=== PATIENT | male | born 1930 | race Caucasian/White ===

== ENCOUNTER 2017-02-11 19:45 | Observation (INO) | payer MEDICARE, OTHER ==
[2017-02-11] MEDS ORDERED: Nitroglycerin 2% Ointment Foilpak UD TOP STA (20:07)
[2017-02-11] MEDS ORDERED: Nitroglycerin 2% Ointment Foilpak UD TOP ONE (20:14)
[2017-02-11 20:15] LABS: BASO # 0.1 K/uL (0.0-0.2); BASO % 1.2 % (0.0-2.0); EOS # 0.3 K/uL (0.0-0.7); EOS % 3.3 % (0.0-4.0); HEMATOCRIT 35.5 % (35.0-51.0); LYMPH # 2.4 K/uL (1.0-4.3); LYMPH % 25.7 % (20.0-40.0); MEAN CELL VOLUME 89.5 fL (80.0-94.0); MEAN CORPUSCULAR HEMOGLOBIN 30.1 pg (27.0-31.0); MEAN CORPUSCULAR HGB CONC 33.6 g/dL (33.0-37.0); MEAN PLATELET VOLUME 10.6 fL (7.2-11.7); MONO # 1.1 K/uL (0.0-0.8); MONO % 12.1 % (0.0-10.0); RED CELL DISTRIBUTION WIDTH 13.3 % (11.5-14.5); WHITE BLOOD COUNT 9.2 K/uL (4.8-10.8)
[2017-02-11 20:25] LABS: ALB/GLOB RATIO 1.1 (1.0-2.1); BILIRUBIN,TOTAL 0.6 mg/dL (0.2-1.3); TOTAL PROTEIN 6.6 g/dL (6.3-8.3)
[2017-02-11 20:26] LABS: CALCIUM 8.8 mg/dl (8.6-10.4)
--- NOTE | 2017-02-11 20:26 | C.PDOC ---
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 Pt notes the pain as severe and non- radiating that is associated with diaphoresis, SOB, and one episode of vomiting. Pt reports the pain began while he was sitting at [employer]. Pt denies fever, chills, palpitations, lightheadedness or syncope. Time Seen by Provider: 02/11/17 19:59 Chief Complaint (Nursing): Chest Pain History Per: Patient History/Exam Limitations: no limitations Onset/Duration Of Symptoms: Hrs Current Symptoms Are (Timing): Still Present Severity: Mild Recent travel outside of the [place]: No Past Medical History Reviewed: Historical Data, Nursing Documentation, Vital Signs Vital Signs: Last Vital Signs Temp 97.2 F L 02/11/17 19:51 Pulse 64 02/11/17 21:35 Resp 20 02/11/17 21:35 BP 153/71 H 02/11/17 21:35 Pulse Ox 99 02/11/17 21:35 - Medical History PMH: CAD, HTN Family History: States: Unknown Family Hx - Social History Hx Alcohol Use: No Hx Substance Use: No Review Of Systems Except As Marked, All Systems Reviewed And Found Negative. Constitutional: Positive for: Sweats. Negative for: Fever, Chills Cardiovascular: Positive for: Chest Pain (Substernal). Negative for: Palpitations, Light Headedness Respiratory: Positive for: Shortness of Breath Gastrointestinal: Positive for: Vomiting Physical Exam - Physical Exam Appears: Non-toxic, No Acute Distress Skin: Warm, Dry Head: Atraumatic, Normacephalic Oral Mucosa: Moist Chest: Symmetrical Cardiovascular: Rhythm Regular, No Murmur Respiratory: Normal Breath Sounds, No Rales, No Rhonchi, No Wheezing Gastrointestinal/Abdominal: Soft, No Tenderness Extremity: Normal ROM, No Pedal Edema, No Swelling Neurological/Psych: Oriented x3, Normal Speech, Normal Cognition Gait: Steady ED Course And Treatment - Laboratory Results Result Diagrams: 02/11/17 20:11 02/11/17 20:11 ECG: Interpreted By Me, Viewed By Me ECG Rhythm: Sinus Rhythm ECG Interpretation: No Acute Changes Interpretation Of ECG: Small inferior QS Rate From EC O2 Sat by Pulse Oximetry: 96 (RA) Pulse Ox Interpretation: Normal Medical Decision Making Medical Decision Making: Plans: -EKG -Blood labs -IV fluids -Nitroglycerin Pt remained stable in the ED Clasic cp hx, Ti neg, EKG old changes, Hx of stents Results and plan discussed with pt will need observation for further eval of the CP Dr Chaney consulted and will observe the pt Disposition - Disposition Disposition: HOSPITALIZED Disposition Time: 22:20 Condition: FAIR - Clinical Impression Clinical Impression: Chest pain, CAD (coronary artery disease) - Scribe Statement The provider has reviewed the documentation as recorded by the Scribe Rolando sparrow All medical record entries made by the Scribe were at my direction and personally dictated by me. I have reviewed the chart and agree that the record accurately reflects my personal performance of the history, physical exam, medical decision making, and the department course for this patient. I have also personally directed, reviewed, and agree with the discharge instructions and disposition.
[2017-02-11 20:37] LABS: TROPONIN I 0.017 ng/mL (0.00-0.120)
[2017-02-12] MEDS ORDERED: Enoxaparin 80 mg Syringe SC STA (01:26)
--- NOTE | 2017-02-12 01:35 | CP.PCM.HP ---
History of Present Illness - History of Present Illness History of Present Illness: CC: pain in my chest HPI: 86 M PMHx CAD with stents, HTN, DM presents with substernal chest pain that began at 7pm on the day of admission. Patient reports the pain started when he was at [employer] and kneeling down and he felt the pain on the left side of his chest. He reported the pain felt like a heavy sensation that was "too strong" and tight. The pain did not radiate up his jaw or down his left arm. Patient did have associated diaphoresis and two episodes of emesis that looked like gravy that were nonbloody and nonbilious. He reported he could feel his heart beating strongly against his chest. EMS was called and on his way to the ER patient was given 4 81mg ASA and 3 nitro sprays. Patient was given nitropaste in the ER and the pain subsided. Patient reported he felt like the pain was present for 2 hours. He states he had a cardiac cath 8 months ago which was "okay" and he had cardiac stents placed 1 year ago at [facility] [place]. Patient was also concerned that his DM was uncontrolled and associated his urinary frequency with it. Patient denied fever, chills, weakness, headache, dizziness, lightheadedness, change in vision/hearing, sore throat, dysphagia, palpitations , SOB, cough, hematemesis, bowel complaints, swelling in his legs b/l, back pain , rash, bruising, bleeding, recent travel, sick contacts, change in weight, change in appetite. He admitted to diaphoresis, chest pain, abdominal pain, nausea, vomiting, pain in his left thigh, urinary frequency. PMHx: CAD with stents, HTN, DM, PSHx: [facility] [place] 1 year ago where he had cardiac stents placed ALL: NKDA Medications: as per chart Social Hx: denies EtOH, tobacco, drugs. 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 Family Hx: father lived until he was 115 years old and brother lived until he was 99 years old. 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 Admits diaphoresis, chest pain, abdominal pain, nausea, vomiting, pain in his left thigh, urinary frequency Present on Admission - Present on Admission Any Indicators Present on Admission: No Review of Systems - Constitutional Constitutional: As Per HPI. absent: Chills, Fever - EENT Eyes: As Per HPI. absent: Blurred Vision Ears: As Per HPI. absent: Tinnitus, Dizziness Nose/Mouth/Throat: As Per HPI. absent: Dysphagia, Sore Throat - Cardiovascular Cardiovascular: As Per HPI, Chest Pain. absent: Dyspnea, Dyspnea on Exertion, Edema, Pedal Edema - Respiratory Respiratory: As Per HPI. absent: Cough, Dyspnea, Wheezing, Chest Congestion - Gastrointestinal Gastrointestinal: As Per HPI, Abdominal Pain, Nausea, Vomiting (x 2). absent: Constipation, Diarrhea - Genitourinary Genitourinary: As Per HPI. absent: Dysuria, Hematuria, Pyuria - Musculoskeletal Musculoskeletal: As Per HPI. absent: Back Pain, Numbness, Radiating Pain into Limb, Tingling - Integumentary Integumentary: As Per HPI. absent: Rash - Neurological Neurological: As Per HPI. absent: Dizziness, Headaches, Tingling, Weakness - Psychiatric Psychiatric: As Per HPI. absent: Anxiety, Depression - Endocrine Endocrine: As Per HPI, Polyuria. absent: Palpitations, Polydipsia, Polyphagia - Hematologic/Lymphatic Hematologic: As Per HPI. absent: Easy Bleeding, Easy Bruising, Lymphadenopathy Past Patient History - Past Social History Smoking Status: Never Smoked - CARDIAC Hx Hypertension: Yes - ENDOCRINE/METABOLIC Hx Diabetes Mellitus Type 2: Yes - PSYCHIATRIC Hx Substance Use: No Meds Allergies/Adverse Reactions: Allergies Allergy/AdvReac Type Severity Reaction Status Date / Time No Known Allergies Allergy Unverified 02/11/17 19:58 Physical Exam - Constitutional Appears: Non-toxic, No Acute Distress - Head Exam Head Exam: ATRAUMATIC, NORMAL INSPECTION, NORMOCEPHALIC - Eye Exam Eye Exam: EOMI, Normal appearance, PERRL. absent: Conjunctival injection, Scleral icterus Pupil Exam: NORMAL ACCOMODATION - ENT Exam ENT Exam: Mucous Membranes Moist - Neck Exam Neck exam: Positive for: Full Rom, Normal Inspection. Negative for: Lymphadenopathy, Tenderness - Respiratory Exam Respiratory Exam: Clear to Auscultation Bilateral, NORMAL BREATHING PATTERN. absent: Accessory Muscle Use, Rales, Rhonchi, Wheezes - Cardiovascular Exam Cardiovascular Exam: REGULAR RHYTHM, RRR, +S1, +S2. absent: Systolic Murmur - GI/Abdominal Exam GI & Abdominal Exam: Normal Bowel Sounds, Soft. absent: Firm, Guarding, Rigid, Tenderness - Extremities Exam Extremities exam: Positive for: normal capillary refill, normal inspection, pedal pulses present. Negative for: pedal edema - Back Exam Back exam: NORMAL INSPECTION. absent: rash noted, tenderness - Neurological Exam Neurological exam: Alert, CN II-XII Intact, Oriented x3 - Psychiatric Exam Psychiatric exam: Normal Affect, Normal Mood - Skin Skin Exam: Dry, Intact, Normal Color, Warm Results - Vital Signs Recent Vital Signs: Last Vital Signs Temp 98 F 02/11/17 23:55 Pulse 55 L 02/11/17 23:55 Resp 15 02/11/17 23:55 BP 135/57 L 02/11/17 23:55 Pulse Ox 99 02/11/17 23:55 - Labs Result Diagrams: 02/11/17 20:11 02/11/17 20:11 Labs: Laboratory Results - last 24 hr 02/12/17 00:43 Total Creatine Kinase 158 CK-MB (Mass) 2.75 Troponin I, Quant 0.3320 H* Assessment & Plan - Assessment and Plan (Free Text) Assessment: 86 M PMHx CAD with stents, HTN, DM presents with substernal chest pain that began at 7pm on the day of admission Plan: Chest pain r/o ACS -2nd troponin 0.332; EKG: sinus rhythm with sinus arrhythmia with 1st degree AV block; inferior infarct age undetermined -1st troponin 0.017; EKG: NSR @ 68bpm -Patient given Lovenox 80mg stat after 2nd troponin elevation -ASA 81mg po daily -Crestor 5mg po hs -f/u third ZEHRA and EKG -f/u echo -f/u CXR -2015 myocardial perfusion scan: abnl and consistent with a mild degree of non transmural scar with viability of the LV inferolateral wall. No ischemia is seen. Normal LV EF. No ischemia is anoted. normal LV EF of 82%. Both post stress and resting LV myocardial perfusion images demonstrated a similar moderated sized mild inferolateral wall defect. -Will speak to primary in the AM regarding cardiology consult Hx of DM2 -f/u HgbA1c -Accucheck -RISS Hx of HTN -will speak to primary in AM regarding BP meds -f/u lipid panel and thyroid studies PPX -SCDs -Protonix 40mg po daily -Heparin 5000u sc q12 -Heart healthy diet mod consistent carb Case discussed with Dr. Shiv Castaneda PGY1
--- NOTE | 2017-02-12 07:26 | CP.PCM.PN ---
Subjective - Date & Time of Evaluation Date of Evaluation: 02/12/17 Time of Evaluation: 07:25 - Subjective Subjective: PGY-1 progress note for hospitalist service Pt seen and examined at bedside. Overnight pt returned positive troponin values , and was was given Lovenox. Third ZEHRA this AM showed positive troponin but was downtrending from previous. EKG shows slight ST elevation in inferior leads. Pt was started on heparin drip as precaution. Pt denies any chest pain or discomfort, shortness of breath, abdominal pain, N/V/D/C. Call was placed to pts Geotechnical Engineer, Dr. Lady Riley. Dr. Riley believed that because pt was having no chest pain presently, and there was no matching CK rise with troponin, pt could be discharged and he would follow up at his office on Wednesday. Fourth ZEHRA largely down-trending, EKG NSR. Objective - Vital Signs/Intake and Output Vital Signs (last 24 hours): Temp Pulse Resp BP Pulse Ox 97.9 F 52 L 20 132/58 L 100 02/12/17 04:10 02/12/17 04:10 02/12/17 04:10 02/12/17 04:10 02/12/17 04:10 - Medications Medications: Current Medications Aspirin (Aspirin Chewable) 81 mg PO DAILY TIFFANY Heparin Sodium (Porcine) (Heparin) 5,000 units SC Q12 TIFFANY Insulin Aspart (Novolog) 0 unit SC ACHS TIFFANY PRN Reason: Protocol Pantoprazole Sodium (Protonix Ec Tab) 40 mg PO DAILY TIFFANY Rosuvastatin Calcium (Crestor) 5 mg PO HS TIFFANY - Additional Findings Additional findings: - Constitutional Appears: Non-toxic, No Acute Distress - Head Exam Head Exam: ATRAUMATIC, NORMAL INSPECTION, NORMOCEPHALIC - Eye Exam Eye Exam: EOMI, Normal appearance, PERRL. absent: Conjunctival injection, Scleral icterus Pupil Exam: NORMAL ACCOMODATION - ENT Exam ENT Exam: Mucous Membranes Moist - Neck Exam Neck exam: Positive for: Full Rom, Normal Inspection. Negative for: Lymphadenopathy, Tenderness - No JVD - Respiratory Exam Respiratory Exam: Clear to Auscultation Bilateral, NORMAL BREATHING PATTERN. absent: Accessory Muscle Use, Rales, Rhonchi, Wheezes - Cardiovascular Exam Cardiovascular Exam: REGULAR RHYTHM, RRR, +S1, +S2. absent: Systolic Murmur - No reproducible chest pain - GI/Abdominal Exam GI & Abdominal Exam: Normal Bowel Sounds, Soft. absent: Firm, Guarding, Rigid, Tenderness - Extremities Exam Extremities exam: Positive for: normal capillary refill, normal inspection, pedal pulses present. Negative for: pedal edema - Back Exam Back exam: NORMAL INSPECTION. absent: rash noted, tenderness - Neurological Exam Neurological exam: Alert, CN II-XII Intact, Oriented x3 - Psychiatric Exam Psychiatric exam: Normal Affect, Normal Mood - Skin Skin Exam: Dry, Intact, Normal Color, Warm Assessment and Plan - Assessment and Plan (Free Text) Assessment: 86 M PMHx CAD with stents, HTN, DM presents with substernal chest pain that began at 7pm on the day of admission Plan: Chest pain r/o ACS Troponin Trend 0.017, 0.332, 0.3050, 0.1840 EKG: sinus rhythm with sinus arrhythmia with 1st degree AV block; inferior infarct age undetermined; EKG: NSR @ 68bpm CXR (02/12/17): NAD 2015 myocardial perfusion scan: abnl and consistent with a mild degree of non transmural scar with viability of the LV inferolateral wall. No ischemia is seen. Normal LV EF. No ischemia is noted. normal LV EF of 82%. Both post stress and resting LV myocardial perfusion images demonstrated a similar moderated sized mild inferolateral wall defect. -f/u echo official report Patient given Lovenox 80mg stat after 2nd troponin elevation - Heparin Drip started, but stopped after down-trending ZEHRA ASA 81mg po daily HOLD BB as pt bradycardic, start Lisinopril 5mg Daily Crestor 5mg po hs Dr. Lady Riley, cardiology consult - f/u reccs Hx of DM2 -HgbA1c: 9.9 -Accucheck -RISS Hx of HTN -pt does not know home meds -Start Norvasc 5mg PO Daily -Lipid panel: WNL -Thyroid studies: WNL PPX -SCDs -Protonix 40mg po daily -Heparin 5000u sc q12 -Heart healthy diet mod consistent carb
[2017-02-12] MEDS: (Novolog) Insulin Aspart, Recombinant 100 u/ml 10 ml vial SC SCH ×4 (07:51→21:44)
[2017-02-12 10:03] LABS: T4 8.04 ug/dL (5.5-11.0)
[2017-02-12] MEDS: Pantoprazole 40 mg EC Tab PO SCH (10:16)
[2017-02-12 10:17] LABS: THYROID STIMULATING HORMONE 1.8 mIU/L (0.46-4.68)
--- NOTE | 2017-02-12 10:21 | RAD ---
PROCEDURE: CHEST RADIOGRAPH, 1 VIEW HISTORY: Chest pain COMPARISON: 08/03/2012 FINDINGS: LUNGS: The lungs are clear. PLEURA: No pneumothorax or pleural fluid seen. CARDIOVASCULAR: The heart is normal in size. There is asymmetric prominence of the right hilum, stable since the prior examination. OSSEOUS STRUCTURES: No significant abnormalities. VISUALIZED UPPER ABDOMEN: Normal. OTHER FINDINGS: None. IMPRESSION: No active pulmonary disease.
[2017-02-12] MEDS ORDERED: Heparin25000 units/250ml 1/2NS 25,000 UNITS/250 ML BAG IV PRN (12:45)
[2017-02-12 14:52] LABS: CHLORIDE 104 mmol/L (98-107); SODIUM 138 mmol/L (132-148)
[2017-02-12 14:53] LABS: POTASSIUM 4.5 mmol/L (3.6-5.2)
[2017-02-12 14:55] LABS: BLOOD UREA NITROGEN 16 mg/dL (9-20); CARBON DIOXIDE 26 mmol/L (22-30); GFR AFRICAN-AMERICAN > 60
[2017-02-12 14:56] LABS: GLUCOSE,RANDOM 200 mg/dL (75-110)
[2017-02-12 16:52] VITALS: RESP 20; O2SAT 98
[2017-02-12] MEDS ORDERED: Enoxaparin 80 mg Syringe SC SCH (20:00)
[2017-02-13] MEDS: (Novolog) Insulin Aspart, Recombinant 100 u/ml 10 ml vial SC SCH ×2 (07:41→12:33)
[2017-02-13 08:47] LABS: BASO # 0.1 K/uL (0.0-0.2); BASO % 1.1 % (0.0-2.0); EOS # 0.3 K/uL (0.0-0.7); EOS % 4.1 % (0.0-4.0); HEMATOCRIT 40.2 % (35.0-51.0); LYMPH # 1.3 K/uL (1.0-4.3); LYMPH % 18.5 % (20.0-40.0); MEAN CELL VOLUME 89.4 fL (80.0-94.0); MEAN CORPUSCULAR HEMOGLOBIN 30.2 pg (27.0-31.0); MEAN CORPUSCULAR HGB CONC 33.8 g/dL (33.0-37.0); MEAN PLATELET VOLUME 11.1 fL (7.2-11.7); MONO # 0.7 K/uL (0.0-0.8); MONO % 9.6 % (0.0-10.0); NRBC % 0.1 % (0.0-2.0); RED CELL DISTRIBUTION WIDTH 13.5 % (11.5-14.5); WHITE BLOOD COUNT 7.1 K/uL (4.8-10.8)
[2017-02-13 08:57] LABS: CHLORIDE 105 mmol/L (98-107); SODIUM 139 mmol/L (132-148)
[2017-02-13 08:58] LABS: POTASSIUM 4.5 mmol/L (3.6-5.2)
[2017-02-13 08:59] LABS: BILIRUBIN,TOTAL 0.8 mg/dL (0.2-1.3); GFR AFRICAN-AMERICAN > 60
[2017-02-13 09:00] LABS: ALB/GLOB RATIO 1.1 (1.0-2.1); ALKALINE PHOSPHATASE 159 U/L (38-126); ALT/SGPT 50 U/L (21-72); AST/SGOT 49 U/L (17-59); BLOOD UREA NITROGEN 17 mg/dL (9-20); CARBON DIOXIDE 23 mmol/L (22-30); GLUCOSE,RANDOM 291 mg/dL (75-110); PHOSPHOROUS 2.8 mg/dL (2.5-4.5); TOTAL PROTEIN 7.2 g/dL (6.3-8.3)
[2017-02-13 09:01] LABS: CALCIUM 9.1 mg/dl (8.6-10.4); MAGNESIUM 1.7 mg/dL (1.6-2.3)
[2017-02-13 09:05] VITALS: BP 131/73; PULSE 71; TEMP 98.4
[2017-02-13] MEDS: Pantoprazole 40 mg EC Tab PO SCH (09:54)
--- NOTE | 2017-02-13 14:16 | CP.PCM.DIS ---
Provider - Provider Date of Admission: 02/11/17 22:10 Attending physician: Herrera Chaney MD Primary care physician: Dr. Lady Riley Consults: Dr. Osvaldo Narayanan for cardiology Time Spent in preparation of Discharge (in minutes): 40 Hospital Course - Lab Results Lab Results: Most Recent Lab Values WBC 7.1 K/uL (4.8-10.8) 02/13/17 08:33 RBC 4.50 Mil/uL (4.40-5.90) 02/13/17 08:33 Hgb 13.6 g/dL (12.0-18.0) 02/13/17 08:33 Hct 40.2 % (35.0-51.0) 02/13/17 08:33 MCV 89.4 fL (80.0-94.0) 02/13/17 08:33 MCH 30.2 pg (27.0-31.0) 02/13/17 08:33 MCHC 33.8 g/dL (33.0-37.0) 02/13/17 08:33 RDW 13.5 % (11.5-14.5) 02/13/17 08:33 Plt Count 182 K/uL (130-400) 02/13/17 08:33 MPV 11.1 fL (7.2-11.7) 02/13/17 08:33 Neut % (Auto) 66.7 % (50.0-75.0) 02/13/17 08:33 Lymph % (Auto) 18.5 % (20.0-40.0) L 02/13/17 08:33 [place] % (Auto) 9.6 % (0.0-10.0) 02/13/17 08:33 Eos % (Auto) 4.1 % (0.0-4.0) H 02/13/17 08:33 Baso % (Auto) 1.1 % (0.0-2.0) 02/13/17 08:33 Neut # 4.8 K/uL (1.8-7.0) 02/13/17 08:33 Lymph # 1.3 K/uL (1.0-4.3) 02/13/17 08:33 [place] # 0.7 K/uL (0.0-0.8) 02/13/17 08:33 Eos # 0.3 K/uL (0.0-0.7) 02/13/17 08:33 Baso # 0.1 K/uL (0.0-0.2) 02/13/17 08:33 APTT 40 SECONDS (21-34) H D 02/13/17 08:33 Sodium 139 mmol/L (132-148) 02/13/17 08:33 Potassium 4.5 mmol/L (3.6-5.2) 02/13/17 08:33 Chloride 105 mmol/L (98-107) 02/13/17 08:33 Carbon Dioxide 23 mmol/L (22-30) 02/13/17 08:33 Anion Gap 15 (10-20) 02/13/17 08:33 BUN 17 mg/dL (9-20) 02/13/17 08:33 Creatinine 1.3 MG/DL (0.8-1.5) 02/13/17 08:33 Est GFR ( Amer) > 60 02/13/17 08:33 Est GFR (Non-Af Amer) 52 02/13/17 08:33 POC Glucose (mg/dL) 238 mg/dL (65-110) H 02/13/17 12:14 Random Glucose 291 mg/dL (75-110) H 02/13/17 08:33 Hemoglobin A1c 9.9 % (4.2-6.5) H 02/12/17 08:27 Calcium 9.1 mg/dl (8.6-10.4) 02/13/17 08:33 Phosphorus 2.8 mg/dL (2.5-4.5) 02/13/17 08:33 Magnesium 1.7 mg/dL (1.6-2.3) 02/13/17 08:33 Total Bilirubin 0.8 mg/dL (0.2-1.3) 02/13/17 08:33 AST 49 U/L (17-59) 02/13/17 08:33 ALT 50 U/L (21-72) 02/13/17 08:33 Alkaline Phosphatase 159 U/L (38-126) H 02/13/17 08:33 Total Creatine Kinase 143 U/L (55-170) 02/12/17 14:13 CK-MB (Mass) 2.93 ng/mL (0.0-3.38) 02/12/17 14:13 Troponin I 0.0170 ng/mL (0.00-0.120) 02/11/17 20:11 Troponin I, Quant 0.1840 ng/mL (0.00-0.120) H* 02/12/17 14:13 Total Protein 7.2 g/dL (6.3-8.3) 02/13/17 08:33 Albumin 3.7 g/dL (3.5-5.0) 02/13/17 08:33 Globulin 3.5 gm/dL (2.2-3.9) 02/13/17 08:33 Albumin/Globulin Ratio 1.1 (1.0-2.1) 02/13/17 08:33 Triglycerides 86 mg/dL (0-149) 02/12/17 08:27 Cholesterol 163 mg/dL (0-199) 02/12/17 08:27 LDL Cholesterol Direct 96 mg/dL (0-129) 02/12/17 08:27 HDL Cholesterol 46 mg/dL (30-70) 02/12/17 08:27 Thyroxine (T4) 8.04 ug/dL (5.5-11.0) 02/12/17 08:27 TSH 3rd Generation 1.80 mIU/L (0.46-4.68) 02/12/17 08:27 - Hospital Course Hospital Course: On admission: 86 M PMHx CAD with stents, HTN, DM presents with substernal chest pain that began at 7pm on the day of admission. Patient reports the pain started when he was at [employer] and kneeling down and he felt the pain on the left side of his chest. He reported the pain felt like a heavy sensation that was "too strong" and tight. The pain did not radiate up his jaw or down his left arm. Patient did have associated diaphoresis and two episodes of emesis that looked like gravy that were nonbloody and nonbilious. He reported he could feel his heart beating strongly against his chest. EMS was called and on his way to the ER patient was given 4 81mg ASA and 3 nitro sprays. Patient was given nitropaste in the ER and the pain subsided. Patient reported he felt like the pain was present for 2 hours. He states he had a cardiac cath 8 months ago which was "okay" and he had cardiac st[place] [facility] [place] Patient was also concerned that his DM was uncontrolled and associated his urinary frequency with it. Patient denied fever, chills, weakness, headache, dizziness, lightheadedness, change in vision/hearing, sore throat, dysphagia, palpitations , SOB, cough, hematemesis, bowel complaints, swelling in his legs b/l, back pain , rash, bruising, bleeding, recent travel, sick contacts, change in weight, change in appetite. He admitted to diaphoresis, chest pain, abdominal pain, nausea, vomiting, pain in his left thigh, urinary frequency. Hospital course: Patient was worked up for chest pain. Patient did not have any EKG changes. Patient had elevated troponins as high as 0.3320 which down trended to 0.1840. Patient was placed on therapeutic Lovenox. PTT increased to 112 so she was taken off and PTT came down to 40. Medical team spoke with patient's primary doctor and underground production foreperson, Dr. Lady Riley, who recommended outpatient follow up. Patient needs further outpatient tests and management. Patient seen and examined at bedside this AM. He was alert and AAOx3, moving all four limbs, cranial nerves intact. Patient denies chest pain and has no other complaints. Patient wants to go home. On discharge: Patient to be discharged home per Dr. Nicolette Ying. Patient should make an appointment and follow up with Dr. Lady Riley within one week. Patient should take an aspirin 81mg by mouth daily. Patient should stop home metoprolol pill. Patient should also take newly prescribed medications as directed below. Patient should return to ED immediately if symptoms return or worsen. Newly prescribed medications: Coreg 3.125mg by mouth twice a day #60 Crestor 5mg by mouth nightly #30 Discharge Exam - Head Exam Head Exam: ATRAUMATIC, NORMAL INSPECTION, NORMOCEPHALIC - Eye Exam Eye Exam: EOMI - ENT Exam ENT Exam: Mucous Membranes Moist - Respiratory Exam Respiratory Exam: Clear to PA & Lateral, NORMAL BREATHING PATTERN. absent: Rhonchi, Wheezes, Respiratory Distress - Cardiovascular Exam Cardiovascular Exam: REGULAR RHYTHM, +S1, +S2. absent: Gallop, Rubs, Systolic Murmur - GI/Abdominal Exam GI & Abdominal Exam: Normal Bowel Sounds, Soft. absent: Distended, Tenderness - Extremities Exam Extremities exam: full ROM, normal capillary refill, pedal pulses present - Neurological Exam Neurological exam: Alert, CN II-XII Intact, Oriented x3 - Psychiatric Exam Psychiatric exam: Normal Affect, Normal Mood - Skin Skin Exam: Normal Color, Warm Discharge Plan - Discharge Medications Prescriptions: Carvedilol [Coreg] 3.125 mg PO BID #60 tab Rosuvastatin Calcium [Crestor] 5 mg PO HS #30 tab - Follow Up Plan Condition: FAIR Disposition: HOME/ ROUTINE Instructions: Aspirin (By mouth), Carvedilol (By mouth), Rosuvastatin (By mouth ), Myocardial Infarction (DC), Coronary Artery Disease (GEN), Chest Pain (DC), Heart Healthy Diet (DC), Meal Planning with Diabetes Exchanges (DC) Additional Instructions: Patient to be discharged home per Dr. Nicolette Yign. Patient should make an appointment and follow up with Dr. Lady Riley within one week. Patient should take an aspirin 81mg by mouth daily. Patient should stop home metoprolol pill. Patient should also take newly prescribed medications as directed below. Patient should return to ED immediately if symptoms return or worsen. Newly prescribed medications: Coreg 3.125mg by mouth twice a day #60 Crestor 5mg by mouth nightly #30 Referrals: Lady Riley MD [Staff Provider] -
--- NOTE | 2017-02-13 16:57 | CARD ---
APPROVED REPORT EXAM: Two-dimensional and M-mode echocardiogram with Doppler and color Doppler. INDICATION CAD Chest Pain Stent RISK FACTORS Hypertension Diabetes M-Mode DIMENSIONS RVDd1.09 (2.1-3.2cm)Left Atrium (MM)4.39 (2.5-4.0cm) IVSd0.79 (0.7-1.1cm)Aortic Root2.62 (2.2-3.7cm) LVDd6.10 (4.0-5.6cm)Aortic Cusp Exc.1.44 (1.5-2.0cm) PWd0.85 (0.7-1.1cm)FS (%) 28 % LVDs4.37 (2.0-3.8cm)LVEF (%)54 (>50%) Aortic Valve AI P 1/2 [id number] Mitral Valve MV E Kztueprc308.3cm/sMV A Ievqcwtr984.3cm/sE/A ratio0.9 TDI E/Lateral E'0.0E/Medial E'0.0 Tricuspid Valve TR Peak Ijrjzsat843to/sTR Peak Gr.[id number] LEFT VENTRICLE The Left Ventricle is mildly dilated. There is normal left ventricular wall thickness. Left ventricle systolic function is normal. The Ejection Fraction is 50-55%. There is normal LV segmental wall motion. Tissue Doppler imaging reveals abnormal left ventricular diastolic dysfunction. RIGHT VENTRICLE The right ventricle is normal size. There is normal right ventricular wall thickness. The right ventricular systolic function is normal. ATRIA The left atrium is mildly dilated. The right atrium size is normal. The interatrial septum is intact with no evidence for an atrial septal defect. AORTIC VALVE The aortic valve is normal in structure. There is mild aortic regurgitation. There is no aortic valvular stenosis. There is no aortic valvular vegetation. MITRAL VALVE The mitral valve is normal in structure. There is no evidence of mitral valve prolapse. There is no mitral valve stenosis. Mitral regurgitation is mild. TRICUSPID VALVE The tricuspid valve is normal in structure. There is mild tricuspid regurgitation. Right ventricular systolic pressure is estimated at 40-50 mmHg. There is mild-moderate pulmonary hypertension. PULMONIC VALVE The pulmonic valve is not well visualized. There is no pulmonic valvular regurgitation. GREAT VESSELS The aortic root is normal in size. PERICARDIAL EFFUSION There is no significant pericardial effusion. <Conclusion> Left ventricle systolic function is normal. The Ejection Fraction is 50-55%. Diastolic dysfunction. There is mild aortic regurgitation. Mitral regurgitation is mild. There is mild tricuspid regurgitation. There is mild-moderate pulmonary hypertension. There is no pulmonic valvular regurgitation.
--- NOTE | 2017-02-14 08:36 | CARD ---
APPROVED REPORT EKG Measurement Heart [id number] <Conclusion> Sinus rhythm with sinus arrhythmia with 1st degree AV block Inferior infarct, age undetermined Abnormal ECG
--- NOTE | 2017-02-14 08:38 | CARD ---
APPROVED REPORT EKG Measurement Heart [id number] <Conclusion> Normal sinus rhythm Cannot rule out Anterior infarct, age undetermined Abnormal ECG
== END 2017-02-13 14:44 | disposition home or self-care (01) ==
LOC: C.ER 19:45 → C.9E 22:10 → C.6T 02-12 00:08
PROVIDERS: ADMIT Internal Medicine; ATTEND Internal Medicine
DX: R07.9 Chest pain, unspecified (principal); I25.10 Atherosclerotic heart disease of native coronary artery without angina pectoris; I10 Essential (primary) hypertension; E11.9 Type 2 diabetes mellitus without complications
CPT/HCPCS: 36415; 71010; 80048; 80053; 80061; 82948; 83036; 83735; 84100; 84436; 84443; 84484; 85025; 85730; 93005; 93306; 97162; 99285; G0378; G8978; G8979; G8980; J1644; J1650

== ENCOUNTER 2018-12-26 08:54 | Inpatient (IN) | payer MEDICARE, OTHER ==
--- NOTE | 2018-12-26 09:15 | C.PDOC ---
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 Patient denies recent illness, fever, chills, headache, dizziness, lightheadedness, change in vision/hearing, sore throat, dysphagia, palpitations, SOB, cough, hematemesis, diarrhea, urinary frequency. Appears AAO#3, not in any apparent distress. PMHx: CAD with stents, HTN, DM, PSH[place]: [facility] [place] [facility] [place] had cardiac stents placed ALL: NKDA Medications: as per chart Social Hx: denies EtOH, tobacco, drugs. 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 PMD: Dr Osvaldo Oh who is also his it admin Time Seen by Provider: 12/26/18 09:10 History Per: Patient Past Medical History Reviewed: Historical Data, Nursing Documentation, Vital Signs - Medical History PMH: CAD, CHF, Diabetes, HTN Denies: Chronic Kidney Disease Family History: States: Unknown Family Hx - Social History Hx Alcohol Use: No Hx Substance Use: No - Immunization History Hx Tetanus Toxoid Vaccination: No Hx Influenza Vaccination: No Hx Pneumococcal Vaccination: No Review Of Systems Except As Marked, All Systems Reviewed And Found Negative. Constitutional: Negative for: Fever, Chills ENT: Negative for: Throat Pain Cardiovascular: Negative for: Chest Pain, Palpitations, Orthopnea, Light Headedness Respiratory: Negative for: Cough, Shortness of Breath, Wheezing Gastrointestinal: Positive for: Nausea, Vomiting, Abdominal Pain. Negative for: Diarrhea, Melena, Hematochezia, Hematemesis Genitourinary: Negative for: Dysuria Neurological: Negative for: Altered Mental Status, Headache, Dizziness Physical Exam - Physical Exam Appears: Well, No Acute Distress Skin: Normal Color, Warm, Dry, No Rash Eye(s): bilateral: PERRL Oral Mucosa: Moist Neck: Trachea Midline, Supple Cardiovascular: Rhythm Regular, No Murmur, No JVD Respiratory: No Decreased Breath Sounds, No Accessory Muscle Use, No Stridor, No Wheezing Gastrointestinal/Abdominal: Soft, Tenderness (mild epigastric), No Distention, No Guarding, No Rebound Back: No CVA Tenderness Extremity: Normal ROM, No Pedal Edema, No Deformity, No Swelling Neurological/Psych: Oriented x3, Normal Speech ED Course And Treatment - Laboratory Results Result Diagrams: 12/26/18 09:41 12/26/18 09:41 Lab Interpretation: Abnormal ECG: Interpreted By Me, Viewed By Me (and ED attending) Interpretation Of ECG: SR@86/min, NAD, Q wave in III, no acute ST-T changes O2 Sat by Pulse Oximetry: 99 Pulse Ox Interpretation: Normal - Radiology CXR: Interpreted by Me, Read By Radiologist CXR Interpretation: Yes: No Acute Disease - CT Scan/US CT A/P Other Rad Studies (CT/US): Radiology Report Reviewed CT/US Interpretation: Structural Steel Detailer : Huma Bright MD. Approver2 : Report Date : 12/26/2018 12:59:37. My Comment : . Date of service: 12/26/2018. PROCEDURE: CT Abdomen and Pelvis with contrast. HISTORY: LLQ pain. COMPARISON: None available. TECHNIQUE: Contrast dose: 100 mL Visipaque 320 IV. Radiation dose: Total exam DLP = 877.56 mGy-cm. This CT exam was performed using one or more of the following dose reduction techniques: Automated exposure control, adjustment of the mA and/or kV according to patient size, and/or use of iterative reconstruction technique. FINDINGS: LOWER THORAX: No visible consolidation, pleural effusion, or pneumothorax. Small hiatal hernia/distal esophageal wall thickening. LIVER: Nodular hepatic contour may be seen in the setting of cirrhosis. GALLBLADDER AND BILE DUCTS: Unremarkable. PANCREAS: Unremarkable. SPLEEN: Tiny probable splenules. The spleen appears otherwise unremarkable. ADRENALS: Unremarkable. KIDNEYS AND URETERS: Kidneys appear diminutive with lobulated renal contours. The kidneys enhance symmetrically. No hydronephrosis or obstructing calculus identified. Too small to characterize left renal hypodensities, statistically likely cysts. VASCULATURE: No aortic aneurysm. Atherosclerotic calcifications/mural plaque. BOWEL: Stomach is nondistended. Lack of oral contrast limits evaluation for bowel pathology. Bowel loops appear within normal limits of caliber without evidence of obstruction. Extensive colonic wall thickening most severely involving the left colon and rectosigmoid colon; correlate clinically for colitis. APPENDIX: The appendix appears within normal limits of caliber. No secondary signs of acute appendicitis. PERITONEUM: No significant free fluid. No definite free air. LYMPH NODES: No bulky adenopathy identified. BLADDER: Unremarkable. REPRODUCTIVE: The prostate gland measures approximately 3.8 x 4.5 cm and contains coarse calcifications. BONES: Osseous demineralization. Degenerative changes. OTHER FINDINGS: Fat containing right inguinal hernia. IMPRESSION: Extensive colonic wall thickening most severely involving the left colon and rectosigmoid colon; correlate clinically for colitis. Nodular hepatic contour may be seen in the setting of cirrhosis. Borderline enlargement of the prostate gland with coarse calcifications; correlate with PSA. Additional findings as above. Progress Note: Pt was OBS in ED for 3 hrs and remained stable. On re-eval, afebrile, hemodynamicaly stable. ABd: benign, (-) guarding, (-) rebound. back: (-) CVA tenderness. Blood work reviewm acute luekocytosis with bandemia, left shift. chemistry- no acute abnoramlities. EKG, CXR, troponin - negative. CT A/P review (+) acute colitis, cirrhosis. case discussed with Hospitalist ( cover for Zay Dominguez) and admission accapted, request start Cipro/Flagyl IV now. results review and discussed with pt, agrees with plan. Disposition - Disposition Disposition: HOSPITALIZED Disposition Time: 11:30 Condition: STABLE - Clinical Impression Clinical Impression: Colitis, Leukocytosis, Bandemia
[2018-12-26] MEDS ORDERED: Sodium Chloride 0.9% 1,000 ML IV ONE ×2 (09:30→09:34)
[2018-12-26 09:49] LABS: BASO % 0.2 % (0.0-2.0); HEMOGLOBIN 14.4 g/dL (12.0-18.0); LYMPH # 0.5 K/uL (1.0-4.3); LYMPH % 2.6 % (20.0-40.0); MEAN CORPUSCULAR HEMOGLOBIN 31.5 pg (27.0-31.0); MEAN CORPUSCULAR HGB CONC 34.3 g/dL (33.0-37.0); MEAN PLATELET VOLUME 9.8 fL (7.2-11.7); MONO # 1.7 K/uL (0.0-0.8); MONO % 9.1 % (0.0-10.0); NEUT # 16.3 K/uL (1.8-7.0); NEUT % 88.1 % (50.0-75.0); PLATELET COUNT 233 K/uL (130-400); RBC 4.56 Mil/uL (4.40-5.90); RED CELL DISTRIBUTION WIDTH 12.8 % (11.5-14.5)
[2018-12-26 09:50] LABS: MEAN CELL VOLUME 91.9 fL (80.0-94.0); WHITE BLOOD COUNT 18.5 K/uL (4.8-10.8)
[2018-12-26 09:57] LABS: INR 1.1; PROTHROMBIN TIME 12.5 SECONDS (9.7-12.2)
[2018-12-26 09:57] LABS: VENOUS BLOOD GAS BASE EXCESS 0.7 mmol/L (0.0-2.0); VENOUS BLOOD GAS PCO2 54 mmHg (40-60); VENOUS BLOOD GAS PO2 20 mm/Hg (30-55); VENOUS BLOOD PH 7.32 (7.32-7.43)
[2018-12-26 10:08] LABS: ALB/GLOB RATIO 1.1 (1.0-2.1); ALBUMIN 4.5 g/dL (3.5-5.0); AMYLASE 131 U/L (30-110); BLOOD UREA NITROGEN 37 mg/dL (9-20); CALCIUM 10.1 mg/dl (8.6-10.4); GFR NON-AFRICAN AMERICAN 48; LIPASE 97 U/L (23-300)
[2018-12-26 10:11] LABS: ALT/SGPT 36 U/L (21-72); AST/SGOT 57 U/L (17-59)
[2018-12-26 10:19] LABS: B-TYPE NATRIURETIC PEPTIDE 246 pg/mL (0-900)
--- NOTE | 2018-12-26 10:24 | RAD ---
Date of service: 12/26/2018 PROCEDURE: CHEST RADIOGRAPH, 1 VIEW HISTORY: chest pain COMPARISON: 02/11/2017 FINDINGS: LUNGS: The lungs are well inflated and clear. PLEURA: No pneumothorax or pleural effusion. CARDIOVASCULAR: The heart is normal in size. There are aortic atherosclerotic calcifications present. OSSEOUS STRUCTURES: Within normal limits for the patient's age. VISUALIZED UPPER ABDOMEN: Normal. OTHER FINDINGS: None. IMPRESSION: No active pulmonary disease.
[2018-12-26 10:28] LABS: SQUAMOUS EPITHIAL < 1 /hpf (0-5); URINE BILIRUBIN NEGATIVE (NEGATIVE); URINE BLOOD 1+ (NEGATIVE); URINE CLARITY Hazy (Clear); URINE COLOR Yellow (YELLOW); URINE GLUCOSE (UA) 2+ mg/dL (Normal); URINE LEUKOCYTE ESTERASE NEG Leu/uL (Negative); URINE PROTEIN 2+ mg/dL (NEGATIVE); URINE UROBILINOGEN NORMAL mg/dL (0.2-1.0)
[2018-12-26 10:46] LABS: BANDS 3 % (0-2); LYMPHOCYTE 3 % (20-40); MONOCYTE 9 % (0-10); NEUTROPHIL 85 % (50-75); PLATELET ESTIMATE NORMAL (NORMAL); TOTAL CELLS COUNTED 100
[2018-12-26] MEDS ORDERED: Iodixanol 320 MG/ML 100 ML BOTTLE IV ONE (12:06)
--- NOTE | 2018-12-26 13:03 | CT ---
Date of service: 12/26/2018 PROCEDURE: CT Abdomen and Pelvis with contrast HISTORY: LLQ pain COMPARISON: None available. TECHNIQUE: Contrast dose: 100 mL Visipaque 320 IV Radiation dose: Total exam DLP = 877.56 mGy-cm. This CT exam was performed using one or more of the following dose reduction techniques: Automated exposure control, adjustment of the mA and/or kV according to patient size, and/or use of iterative reconstruction technique. FINDINGS: LOWER THORAX: No visible consolidation, pleural effusion, or pneumothorax. Small hiatal hernia/distal esophageal wall thickening. LIVER: Nodular hepatic contour may be seen in the setting of cirrhosis. GALLBLADDER AND BILE DUCTS: Unremarkable. PANCREAS: Unremarkable. SPLEEN: Tiny probable splenules. The spleen appears otherwise unremarkable. ADRENALS: Unremarkable. KIDNEYS AND URETERS: Kidneys appear diminutive with lobulated renal contours. The kidneys enhance symmetrically. No hydronephrosis or obstructing calculus identified. Too small to characterize left renal hypodensities, statistically likely cysts. VASCULATURE: No aortic aneurysm. Atherosclerotic calcifications/mural plaque. BOWEL: Stomach is nondistended. Lack of oral contrast limits evaluation for bowel pathology. Bowel loops appear within normal limits of caliber without evidence of obstruction. Extensive colonic wall thickening most severely involving the left colon and rectosigmoid colon; correlate clinically for colitis. APPENDIX: The appendix appears within normal limits of caliber. No secondary signs of acute appendicitis. PERITONEUM: No significant free fluid. No definite free air. LYMPH NODES: No bulky adenopathy identified. BLADDER: Unremarkable. REPRODUCTIVE: The prostate gland measures approximately 3.8 x 4.5 cm and contains coarse calcifications. BONES: Osseous demineralization. Degenerative changes. OTHER FINDINGS: Fat containing right inguinal hernia. IMPRESSION: Extensive colonic wall thickening most severely involving the left colon and rectosigmoid colon; correlate clinically for colitis. Nodular hepatic contour may be seen in the setting of cirrhosis. Borderline enlargement of the prostate gland with coarse calcifications; correlate with PSA. Additional findings as above.
[2018-12-26] MEDS ORDERED: Ciprofloxacin 400mg/200ml D5W 400 MG/200 ML BAG IV STA (13:25)
[2018-12-26] MEDS ORDERED: metroNIDAZOLE IV 500 mg/100 ml 500 MG/100 ML BAG IV SCH (13:30)
[2018-12-26] MEDS ORDERED: Ciprofloxacin 400mg/200ml D5W 400 MG/200 ML BAG IVPB ONE (13:53)
[2018-12-26] MEDS ORDERED: metroNIDAZOLE IV 500 mg/100 ml 500 MG/100 ML BAG ONE (13:54)
--- NOTE | 2018-12-26 13:57 | CP.PCM.HP ---
<Yaya Fajardo - Last Filed: 12/26/18 16:08> History of Present Illness - History of Present Illness History of Present Illness: H&P for hospitalist Dr. Justice. CC: Abdominal pain HPI: 88M w/ PMhx of HTN, DM, CAD w/ stents presents to ER for severe abdominal pain. Pt reports abdominal pain woke him up at 2AM and had nausea, vomitting, and diarrhea associated with pain. Pt reports about 6-8 episodes of non bloody, non billious episodes of vomitting along with 6 episodes of diarrhea. Pain is reported in the LLQ & RLQ area, intermittent & crampy in nature that is much improved at time of examination. Pt reports also subjective fevers. Patient lives at home and denies hx of sick contacts and recevent travel history. ROS: Denies headaches, vision changes, chest pain, SOB, cough, difficulty urinating/pain, throat, ear pain. PMD: Osvaldo Griffiths PMHx: HTN, DM, CAD w/ stents Meds: Pt unsure of meds, [facility] Allergies: Denies PSHx: Cardiac stents SHx: Denies tobacco, ETOH, illicit drug use, lives alone FHx; Father at age 89 Present on Admission - Present on Admission Any Indicators Present on Admission: No History of DVT/PE: No History of Uncontrolled Diabetes: No Urinary Catheter: No Decubitus Ulcer Present: No Review of Systems - Constitutional Constitutional: Fever. absent: Chills - EENT Eyes: absent: Blurred Vision, Change in Vision Ears: absent: Ear Discharge Nose/Mouth/Throat: absent: Nasal Congestion, Nose Pain - Cardiovascular Cardiovascular: absent: Chest Pain, Chest Pain at Rest, Dyspnea - Respiratory Respiratory: absent: Cough, Dyspnea, Dyspnea on Exertion - Gastrointestinal Gastrointestinal: Abdominal Pain, Diarrhea, Nausea, Vomiting. absent: Bloating, Constipation, Dysphagia, Excessive Flatus, Hematochezia - Genitourinary Genitourinary: absent: Change in Urinary Stream, Difficulty Urinating - Musculoskeletal Musculoskeletal: absent: Arthralgias - Neurological Neurological: absent: Dizziness, Lack of Coordination - Psychiatric Psychiatric: absent: Behavioral Changes, Confusion - Endocrine Endocrine: absent: Change in Body Appearance, Deepening of Voice - Hematologic/Lymphatic Hematologic: absent: Easy Bleeding, Easy Bruising Past Patient History - Past Medical History & Family History Past Medical History?: Yes - Past Social History Smoking Status: Never Smoked - CARDIAC Hx Congestive Heart Failure: Yes Hx Hypertension: Yes - PULMONARY Hx Respiratory Disorders: No - NEUROLOGICAL Hx Neurological Disorder: No - HEENT Hx HEENT Problems: No - RENAL Hx Chronic Kidney Disease: No - ENDOCRINE/METABOLIC Hx Endocrine Disorders: Yes Hx Diabetes Mellitus Type 2: Yes - HEMATOLOGICAL/ONCOLOGICAL Hx Blood Disorders: No - INTEGUMENTARY Hx Dermatological Problems: No - MUSCULOSKELETAL/RHEUMATOLOGICAL Hx Musculoskeletal Disorders: No Hx Falls: No - GASTROINTESTINAL Hx Gastrointestinal Disorders: No - GENITOURINARY/GYNECOLOGICAL Hx Genitourinary Disorders: No - PSYCHIATRIC Hx Substance Use: No - SURGICAL HISTORY Hx Surgeries: Yes Hx Cardiac Catheterization: Yes Other/Comment: Coronary Stents - ANESTHESIA Hx Anesthesia: Yes Hx Anesthesia Reactions: No Hx Malignant Hyperthermia: No Meds Allergies/Adverse Reactions: Allergies Allergy/AdvReac Type Severity Reaction Status Date / Time No Known Allergies Allergy Verified 12/26/18 09:21 Physical Exam - Constitutional Appears: Non-toxic, No Acute Distress - Head Exam Head Exam: NORMAL INSPECTION - Eye Exam Eye Exam: EOMI, Normal appearance - ENT Exam ENT Exam: Mucous Membranes Dry. absent: Mucous Membranes Moist - Respiratory Exam Respiratory Exam: Decreased Breath Sounds, Rales, NORMAL BREATHING PATTERN Additional comments: mild rales RLL - Cardiovascular Exam Cardiovascular Exam: +S1, +S2. absent: Systolic Murmur - GI/Abdominal Exam GI & Abdominal Exam: Normal Bowel Sounds, Soft. absent: Distended, Firm, Guarding Additional comments: tenderness on LLQ, RLQ no erythema, normoactive bowel signs - Extremities Exam Extremities exam: Positive for: full ROM, normal inspection. Negative for: calf tenderness, pedal edema - Back Exam Back exam: absent: CVA tenderness (L), CVA tenderness (R) - Neurological Exam Neurological exam: Alert, CN II-XII Intact, Oriented x3 - Psychiatric Exam Psychiatric exam: Normal Affect, Normal Mood - Skin Skin Exam: Dry, Intact, Normal Color, Warm Results - Vital Signs Recent Vital Signs: Last Vital Signs Temp 98.2 F 12/26/18 09:15 Pulse 82 12/26/18 11:06 Resp 14 12/26/18 11:06 BP 174/75 H 12/26/18 11:06 Pulse Ox 99 12/26/18 13:32 - Labs Result Diagrams: 12/26/18 09:41 12/26/18 09:41 Labs: Laboratory Results - last 24 hr 12/26/18 12/26/18 12/26/18 09:41 09:41 09:41 WBC 18.5 H D RBC 4.56 Hgb 14.4 Hct 42.0 MCV 91.9 D MCH 31.5 H MCHC 34.3 RDW 12.8 Plt Count 233 MPV 9.8 Neut % (Auto) 88.1 H Lymph % (Auto) 2.6 L [place] % (Auto) 9.1 Eos % (Auto) 0.0 Baso % (Auto) 0.2 Neut # (Auto) 16.3 H Lymph # (Auto) 0.5 L [place] # (Auto) 1.7 H Eos # (Auto) 0.0 Baso # (Auto) 0.0 Neutrophils % (Manual) 85 H Band Neutrophils % 3 H Lymphocytes % (Manual) 3 L Monocytes % (Manual) 9 Platelet Estimate Normal RBC Morphology Normal PT 12.5 H INR 1.1 APTT 27.0 pO2 VBG pH VBG pCO2 VBG HCO3 VBG Total CO2 VBG O2 Sat (Calc) VBG Base Excess VBG Potassium Glucose Lactate Sodium 142 Potassium 5.3 H Chloride 105 Carbon Dioxide 24 Anion Gap 18 BUN 37 H Creatinine 1.4 Est GFR ( Amer) 58 Est GFR (Non-Af Amer) 48 Random Glucose 151 H D Calcium 10.1 Phosphorus 3.4 Magnesium 2.2 Total Bilirubin 1.1 AST 57 ALT 36 Alkaline Phosphatase 135 H Troponin I < 0.0120 NT-Pro-B Natriuret Pep 246 Total Protein 8.4 H Albumin 4.5 Globulin 3.9 Albumin/Globulin Ratio 1.1 Amylase 131 H Lipase 97 Venous Blood Potassium Urine Color Urine Clarity Urine pH Ur Specific Fulton Urine Protein Urine Glucose (UA) Urine Ketones Urine Blood Urine Nitrate Urine Bilirubin Urine Urobilinogen Ur Leukocyte Esterase Urine WBC (Auto) Urine RBC (Auto) Ur Squamous Epith Cells Hyaline Casts 12/26/18 12/26/18 09:53 10:16 WBC RBC Hgb Hct MCV MCH MCHC RDW Plt Count MPV Neut % (Auto) Lymph % (Auto) [place] % (Auto) Eos % (Auto) Baso % (Auto) Neut # (Auto) Lymph # (Auto) [place] # (Auto) Eos # (Auto) Baso # (Auto) Neutrophils % (Manual) Band Neutrophils % Lymphocytes % (Manual) Monocytes % (Manual) Platelet Estimate RBC Morphology PT INR APTT pO2 20 L VBG pH 7.32 VBG pCO2 54 VBG HCO3 23.6 VBG Total CO2 29.5 H VBG O2 Sat (Calc) 37.2 L VBG Base Excess 0.7 VBG Potassium 5.3 H Glucose 151 H Lactate 1.7 Sodium 139.0 Potassium Chloride 107.0 Carbon Dioxide Anion Gap BUN Creatinine Est GFR ( Amer) Est GFR (Non-Af Amer) Random Glucose Calcium Phosphorus Magnesium Total Bilirubin AST ALT Alkaline Phosphatase Troponin I NT-Pro-B Natriuret Pep Total Protein Albumin Globulin Albumin/Globulin Ratio Amylase Lipase Venous Blood Potassium 5.3 H Urine Color Yellow Urine Clarity Hazy Urine pH 5.0 Ur Specific [place] 1.019 Urine Protein 2+ H Urine Glucose (UA) 2+ H Urine Ketones Negative Urine Blood 1+ H Urine Nitrate Negative Urine Bilirubin Negative Urine Urobilinogen Normal Ur Leukocyte Esterase Neg Urine WBC (Auto) 1 Urine RBC (Auto) 7 H Ur Squamous Epith Cells < 1 Hyaline Casts 3-5 H Assessment & Plan - Assessment and Plan (Free Text) Assessment: 88M w/ PMhx of HTN, DM, CAD w/ stents presents for vomiting/diarrhea X1 day, per CT, colits Plan: Colitis - infectious vs inflammatory vs ? - likely infectious - WBC 18s, Bands 3, Neutrophils 85% - afebrile - CT report: thickening left colon & rectosigmoid - ciprofloxacin 400 mg IVPB Q12H, Flaggyl 500 mg IVPB Q8H - F/u stool leukocytes, ova parasite, culture - Full liquid diet - Zofran 4 mg Q6H PRN - 1/2 NS @ 50 cc/hr - F/u AM cxray to ensure no fluid overload History of HTN - SBP in 160s - 170s - non compliance with medication - resume previous home medication hydralizine 50 mg BID - start lisinopril 5 mg PO daily History of DM - Blood sugars 150s - non compliance with use of insulin - accucheckcorby ACHS - ISS - hypoglyecemia protocol - f/u HgA1C History of CAD w/ stents - resume plavix 75 mg PO daily, aspirin 81 mg PO daily - EKG: NSR @ 86 BPM, inferior infarct - troponin X 1 negative, no chest pain reported with patient PPx - DVT: SCDs, heaprin 5000 SC Q8H <Duane Justice H - Last Filed: 12/26/18 17:33> Results - Vital Signs Recent Vital Signs: Last Vital Signs Temp 98.7 F 12/26/18 16:48 Pulse 74 12/26/18 16:48 Resp 16 12/26/18 16:48 BP 144/69 12/26/18 16:48 Pulse Ox 100 12/26/18 16:48 - Labs Result Diagrams: 12/26/18 09:41 12/26/18 09:41 Labs: Laboratory Results - last 24 hr 12/26/18 12/26/18 12/26/18 09:41 09:41 09:41 WBC 18.5 H D RBC 4.56 Hgb 14.4 Hct 42.0 MCV 91.9 D MCH 31.5 H MCHC 34.3 RDW 12.8 Plt Count 233 MPV 9.8 Neut % (Auto) 88.1 H Lymph % (Auto) 2.6 L [place] % (Auto) 9.1 Eos % (Auto) 0.0 Baso % (Auto) 0.2 Neut # (Auto) 16.3 H Lymph # (Auto) 0.5 L [place] # (Auto) 1.7 H Eos # (Auto) 0.0 Baso # (Auto) 0.0 Neutrophils % (Manual) 85 H Band Neutrophils % 3 H Lymphocytes % (Manual) 3 L Monocytes % (Manual) 9 Platelet Estimate Normal RBC Morphology Normal PT 12.5 H INR 1.1 APTT 27.0 pO2 VBG pH VBG pCO2 VBG HCO3 VBG Total CO2 VBG O2 Sat (Calc) VBG Base Excess VBG Potassium Glucose Lactate Sodium 142 Potassium 5.3 H Chloride 105 Carbon Dioxide 24 Anion Gap 18 BUN 37 H Creatinine 1.4 Est GFR ( Amer) 58 Est GFR (Non-Af Amer) 48 POC Glucose (mg/dL) Random Glucose 151 H D Calcium 10.1 Phosphorus 3.4 Magnesium 2.2 Total Bilirubin 1.1 AST 57 ALT 36 Alkaline Phosphatase 135 H Troponin I < 0.0120 NT-Pro-B Natriuret Pep 246 Total Protein 8.4 H Albumin 4.5 Globulin 3.9 Albumin/Globulin Ratio 1.1 Amylase 131 H Lipase 97 Venous Blood Potassium Urine Color Urine Clarity Urine pH Ur Specific [place] Urine Protein Urine Glucose (UA) Urine Ketones Urine Blood Urine Nitrate Urine Bilirubin Urine Urobilinogen Ur Leukocyte Esterase Urine WBC (Auto) Urine RBC (Auto) Ur Squamous Epith Cells Hyaline Casts 12/26/18 12/26/18 12/26/18 09:53 10:16 15:23 WBC RBC Hgb Hct MCV MCH MCHC RDW Plt Count MPV Neut % (Auto) Lymph % (Auto) [place] % (Auto) Eos % (Auto) Baso % (Auto) Neut # (Auto) Lymph # (Auto) [place] # (Auto) Eos # (Auto) Baso # (Auto) Neutrophils % (Manual) Band Neutrophils % Lymphocytes % (Manual) Monocytes % (Manual) Platelet Estimate RBC Morphology PT INR APTT pO2 20 L VBG pH 7.32 VBG pCO2 54 VBG HCO3 23.6 VBG Total CO2 29.5 H VBG O2 Sat (Calc) 37.2 L VBG Base Excess 0.7 VBG Potassium 5.3 H Glucose 151 H Lactate 1.7 Sodium 139.0 Potassium Chloride 107.0 Carbon Dioxide Anion Gap BUN Creatinine Est GFR ( Amer) Est GFR (Non-Af Amer) POC Glucose (mg/dL) 143 H Random Glucose Calcium Phosphorus Magnesium Total Bilirubin AST ALT Alkaline Phosphatase Troponin I NT-Pro-B Natriuret Pep Total Protein Albumin Globulin Albumin/Globulin Ratio Amylase Lipase Venous Blood Potassium 5.3 H Urine Color Yellow Urine Clarity Hazy Urine pH 5.0 Ur Specific [place] 1.019 Urine Protein 2+ H Urine Glucose (UA) 2+ H Urine Ketones Negative Urine Blood 1+ H Urine Nitrate Negative Urine Bilirubin Negative Urine Urobilinogen Normal Ur Leukocyte Esterase Neg Urine WBC (Auto) 1 Urine RBC (Auto) 7 H Ur Squamous Epith Cells < 1 Hyaline Casts 3-5 H Attending/Attestation - Attestation I have personally seen and examined this patient.: Yes I have fully participated in the care of the patient.: Yes I have reviewed all pertinent clinical information: Yes Notes (Text): 12/26/18 17:28 Medical attending: Patient was seen and examined by me. Agree with the above note by the resident The patient reported he still had some mild pain when we saw him. The CT scan with IV contrast suggest that he has colitis, I asked the ER to give abx and we are going to continue with the IV abx with slow IVF. He had one bolus of IVF in the ER. We will check a portable CXRAY tommorow in case he starts becoming fluid overload. Labwork shows there is an elevated WBC with left shift and small bandemia noted. His lactic acid level was stable. Patient reported that he thinks he would be able to tolerate a CLD so we will try that. Later on we learned from the patient's pharmacy that he hasn't refilled a lot of his medications for a long time now. It is possible he is going to another pharmacy however it seems he is supposed to be on plavix so we are resuming this as there is a history of cardiac stents in the past. Duane Justice
[2018-12-26] MEDS ORDERED: metroNIDAZOLE IV 500 mg/100 ml 500 MG/100 ML BAG IV STA (14:10)
[2018-12-26] MEDS ORDERED: Glucagon Recombinant 1 mg Inj IM PRN (14:39)
[2018-12-26] MEDS ORDERED: Dextrose 50% SYRINGE Inj (50 ml) IV PRN (14:39)
[2018-12-26] MEDS: Sodium Chloride 0.45% 1,000 ML IV SCH (14:45)
[2018-12-26] MEDS: (Novolog) Insulin Aspart, Recombinant 100 u/ml 10 ml vial SC SCH ×2 (17:09→21:15)
[2018-12-26] MEDS: Saccharomyces Boulardi 250 mg Cap PO SCH (19:03)
[2018-12-26 19:13] VITALS: RESP 20
[2018-12-26] MEDS: metroNIDAZOLE IV 500 mg/100 ml 500 MG/100 ML BAG IVPB SCH (21:14)
[2018-12-27] MEDS: Ciprofloxacin 400mg/200ml D5W 400 MG/200 ML BAG IVPB SCH ×2 (01:00→13:56)
[2018-12-27] MEDS: metroNIDAZOLE IV 500 mg/100 ml 500 MG/100 ML BAG IVPB SCH ×3 (05:54→20:42)
[2018-12-27 06:49] LABS: BASO # 0.1 K/uL (0.0-0.2); BASO % 0.5 % (0.0-2.0); EOS # 0.1 K/uL (0.0-0.7); EOS % 0.4 % (0.0-4.0); LYMPH # 1.1 K/uL (1.0-4.3); LYMPH % 7.8 % (20.0-40.0); MEAN CELL VOLUME 91.6 fL (80.0-94.0); MEAN CORPUSCULAR HEMOGLOBIN 30.9 pg (27.0-31.0); MEAN CORPUSCULAR HGB CONC 33.7 g/dL (33.0-37.0); MEAN PLATELET VOLUME 10.2 fL (7.2-11.7); MONO # 1.6 K/uL (0.0-0.8); MONO % 11.1 % (0.0-10.0); NEUT # 11.5 K/uL (1.8-7.0); NEUT % 80.2 % (50.0-75.0); PLATELET COUNT 208 K/uL (130-400); RBC 4.02 Mil/uL (4.40-5.90); RED CELL DISTRIBUTION WIDTH 13.1 % (11.5-14.5); WHITE BLOOD COUNT 14.3 K/uL (4.8-10.8)
--- NOTE | 2018-12-27 07:06 | CP.PCM.PN ---
<Og Yanes - Last Filed: 12/27/18 10:41> Subjective - Date & Time of Evaluation Date of Evaluation: 12/27/18 Time of Evaluation: 06:48 - Subjective Subjective: PGY1 Medicine Progress Note for Dr. Justice Patient seen and evaluated at bedside this morning. No acute events overnight. No new complaints. Patient tolerating liquid diet and is drinking milk during examination. Patient continues to have mild pain in right lower quadrant, however he otherwise denies fever, chills, nausea, vomiting, diarrhea, chest pain, shortness of breath, and/or headache. Objective - Vital Signs/Intake and Output Vital Signs (last 24 hours): Temp Pulse Resp BP Pulse Ox 98.4 F 83 20 115/61 97 12/27/18 00:00 12/27/18 00:00 12/27/18 00:00 12/27/18 00:00 12/27/18 00:00 - Medications Medications: Current Medications Aspirin (Ecotrin) 81 mg PO DAILY [facility] Clopidogrel Bisulfate (Plavix) 75 mg PO DAILY [facility] Dextrose (Dextrose 50% Inj) 0 ml IV STAT PRN; Protocol PRN Reason: Hypoglycemia Protocol Dextrose (Glutose 15) 0 gm PO ONCE PRN; Protocol PRN Reason: Hypoglycemia Protocol Glucagon (Glucagen Diagnostic Kit) 0 mg IM STAT PRN; Protocol PRN Reason: Hypoglycemia Protocol Heparin Sodium (Porcine) (Heparin) 5,000 units SC Q8 [facility] Last Admin: 12/26/18 21:14 Dose: 5,000 units Hydralazine HCl (Apresoline) 50 mg PO BID [facility] Sodium Chloride (Sodium Chloride 0.45%) 1,000 mls @ 50 mls/hr IV .Q20H [facility] Last Admin: 12/26/18 14:45 Dose: 50 mls/hr Dextrose (Dextrose 5% In Water 1000 Ml) 1,000 mls @ 0 mls/hr IV .Q0M PRN; Protocol PRN Reason: Hypoglycemia Protocol Ciprofloxacin (Cipro 400mg/200ml Dsw) 400 mg in 200 mls @ 133 mls/hr IVPB Q12H [facility]; Protocol Last Admin: 12/27/18 01:00 Dose: 133 mls/hr Metronidazole (Flagyl) 500 mg in 100 mls @ 100 mls/hr IVPB Q8H [facility]; Protocol Last Admin: 12/27/18 05:54 Dose: 100 mls/hr Insulin Aspart (Novolog) 0 unit SC ACHS [facility]; Protocol Last Admin: 12/26/18 21:15 Dose: Not Given Lisinopril (Zestril) 5 mg PO DAILY [facility] Last Admin: 12/26/18 17:20 Dose: 5 mg Ondansetron HCl (Zofran Inj) 4 mg IVP Q6H PRN PRN Reason: Nausea/Vomiting Pantoprazole Sodium (Protonix Inj) 40 mg IVP Q12H [facility] Last Admin: 12/26/18 22:41 Dose: 40 mg Pneumococcal Polyvalent Vaccine (Pneumovax 23 Vaccine) 0.5 ml IM .ONCE ONE Stop: 12/28/18 10:01 Saccharomyces Boulardii (Florastor) 250 mg PO BID [facility] Last Admin: 12/26/18 19:03 Dose: 250 mg - Labs Labs: 12/26/18 09:41 12/26/18 09:41 PT 12.5 SECONDS (9.7-12.2) H 12/26/18 09:41 INR 1.1 12/26/18 09:41 APTT 27.0 SECONDS (21-34) 12/26/18 09:41 - Additional Findings Additional findings: - Constitutional Appears: Non-toxic, No Acute Distress - Head Exam Head Exam: NORMAL INSPECTION - Eye Exam Eye Exam: EOMI, Normal appearance - ENT Exam ENT Exam: Mucous Membranes Dry. absent: Mucous Membranes Moist - Respiratory Exam Respiratory Exam: Decreased Breath Sounds, Rales, NORMAL BREATHING PATTERN Additional comments: mild rales RLL - Cardiovascular Exam Cardiovascular Exam: +S1, +S2. absent: Systolic Murmur - GI/Abdominal Exam GI & Abdominal Exam: Normal Bowel Sounds, Soft. absent: Distended, Firm, Guarding Additional comments: tenderness on RLQ no erythema, normoactive bowel signs - Extremities Exam Extremities exam: Positive for: full ROM, normal inspection. Negative for: calf tenderness, pedal edema - Back Exam Back exam: absent: CVA tenderness (L), CVA tenderness (R) - Neurological Exam Neurological exam: Alert, CN II-XII Intact, Oriented x3 - Psychiatric Exam Psychiatric exam: Normal Affect, Normal Mood - Skin Skin Exam: Dry, Intact, Normal Color, Warm Assessment and Plan - Assessment and Plan (Free Text) Assessment: 88M w/ PMhx of HTN, DM, CAD w/ stents presents for vomiting/diarrhea X1 day, per CT, colitis. Patient had bloody bowel movement x1: patient type and screened. ASA, plavix, and heparin stopped. Patient hemodynamically stable at this time. Plan: Abdominal Pain likely secondary to Colitis - Infectious vs Inflammatory - Patient endorses bloody bowel movement x1 - Type and screen, F/U CBC, Discontinue AC - Leukocytosis with left shift - Stool Occult ordered - Afebrile - CT ABD/PELV: extensive colonic wall thickening most severely involving the left colon and rectosigmoid colon; nodular hepatic contour may be seen in the setting of cirrhosis. Borderline enlargement of the prostate gland with coarse calcifications. - Antibiotics started 12/26 Ciprofloxacin 400 mg IVPB Q12H Flaggyl 500 mg IVPB Q8H - F/U stool leukocytes, ova parasite, culture - Full liquid diet - Zofran 4 mg Q6H PRN - Repeat Chest x-ray in AM: blunting of L costophrenic angle may represent pleural thickening or small pleural effusion - DISCONTINUED: 08/31 NS @ 50 cc/hr - GI consulted (Dr. Jones); recommendations appreciated Hypophosphatemia - Phos-Nak administered - Monitor CMP, Mg, Phos History of HTN - SBP in 160s - 170s - Non compliance with medication - Resume previous home medication hydralizine 50 mg BID - Lisinopril 5 mg PO daily History of DM - Blood sugars 150s - Non compliance with use of insulin - Accuchecks ACHS - ISS - Hypoglyecemia protocol - HgA1C History of CAD w/ stents - HELD due to bloody BM: plavix 75 mg PO daily, aspirin 81 mg PO daily - EKG: NSR @ 86 BPM, inferior infarct - Troponin X 1 negative, no chest pain reported with patient PPx - DVT: SCDs, AC contraindicated due to bloody bowel movement Patient seen and case discussed in detail with Dr. Reshma Yanes PGY1 <Duane Justice - Last Filed: 12/27/18 16:11> Objective - Vital Signs/Intake and Output Vital Signs (last 24 hours): Temp Pulse Resp BP Pulse Ox 98.6 F 66 20 136/51 L 99 12/27/18 16:00 12/27/18 16:00 12/27/18 16:00 12/27/18 16:00 12/27/18 16:00 Intake and Output: 12/27/18 12/27/18 06:59 18:59 Intake Total 1055 Balance 1055 - Medications Medications: Current Medications Clopidogrel Bisulfate (Plavix) 75 mg PO DAILY [facility] Last Admin: 12/27/18 12:00 Dose: 75 mg Dextrose (Dextrose 50% Inj) 0 ml IV STAT PRN; Protocol PRN Reason: Hypoglycemia Protocol Dextrose (Glutose 15) 0 gm PO ONCE PRN; Protocol PRN Reason: Hypoglycemia Protocol Famotidine (Pepcid) 20 mg IVP Q24H [facility] Glucagon (Glucagen Diagnostic Kit) 0 mg IM STAT PRN; Protocol PRN Reason: Hypoglycemia Protocol Heparin Sodium (Porcine) (Heparin) 5,000 units SC Q8 [facility] Last Admin: 12/26/18 21:14 Dose: 5,000 units Hydralazine HCl (Apresoline) 50 mg PO BID [facility] Last Admin: 12/27/18 10:21 Dose: 50 mg Dextrose (Dextrose 5% In Water 1000 Ml) 1,000 mls @ 0 mls/hr IV .Q0M PRN; Protocol PRN Reason: Hypoglycemia Protocol Ciprofloxacin (Cipro 400mg/200ml Dsw) 400 mg in 200 mls @ 133 mls/hr IVPB Q12H [facility]; Protocol Last Admin: 12/27/18 13:56 Dose: 133 mls/hr Metronidazole (Flagyl) 500 mg in 100 mls @ 100 mls/hr IVPB Q8H [facility]; Protocol Last Admin: 12/27/18 12:44 Dose: 100 mls/hr Insulin Aspart (Novolog) 0 unit SC ACHS [facility]; Protocol Last Admin: 12/27/18 12:30 Dose: 1 u Lisinopril (Zestril) 5 mg PO DAILY [facility] Last Admin: 12/27/18 10:21 Dose: 5 mg Ondansetron HCl (Zofran Inj) 4 mg IVP Q6H PRN PRN Reason: Nausea/Vomiting Pneumococcal Polyvalent Vaccine (Pneumovax 23 Vaccine) 0.5 ml IM .ONCE ONE Stop: 12/28/18 10:01 Saccharomyces Boulardii (Florastor) 250 mg PO BID [facility] Last Admin: 12/27/18 10:21 Dose: 250 mg - Labs Labs: 12/27/18 06:28 12/27/18 06:28 PT 12.5 SECONDS (9.7-12.2) H 12/26/18 09:41 INR 1.1 12/26/18 09:41 APTT 27.0 SECONDS (21-34) 12/26/18 09:41 Attending/Attestation - Attestation I have personally seen and examined this patient.: Yes I have fully participated in the care of the patient.: Yes I have reviewed all pertinent clinical information, including history, physical exam and plan: Yes Notes (Text): 12/27/18 16:04 Medical attending: Patient was seen and examined by me. Agree with the above note by the resident The patient WBC decreased, also he remains on IV abx, the patient also reported there is less pain as well Supposedly patient is being continued on the Rocephin and Zosyn IV, Possibly can be discharged soon, per GI will need outpatient colonscopy at some point. Duane Justice
[2018-12-27 07:07] LABS: ALB/GLOB RATIO 1.2 (1.0-2.1); ALBUMIN 3.2 g/dL (3.5-5.0); ALT/SGPT 30 U/L (21-72); AST/SGOT 36 U/L (17-59); BLOOD UREA NITROGEN 25 mg/dL (9-20); CALCIUM 8.8 mg/dl (8.6-10.4); GFR NON-AFRICAN AMERICAN 52; HDL CHOLESTEROL 40 mg/dL (30-70)
[2018-12-27 07:09] LABS: HEMOGLOBIN 12.4 g/dL (12.0-18.0)
[2018-12-27 07:15] LABS: LDL CHOLESTEROL 108 mg/dL (0-129)
[2018-12-27] MEDS ORDERED: Potassium & Sodium Phosphate PO STA (07:41)
[2018-12-27] MEDS: (Novolog) Insulin Aspart, Recombinant 100 u/ml 10 ml vial SC SCH ×4 (08:26→21:27)
[2018-12-27 08:27] LABS: BANDS 9 % (0-2); LYMPHOCYTE 8 % (20-40); MONOCYTE 14 % (0-10); NEUTROPHIL 69 % (50-75); PLATELET ESTIMATE NORMAL (NORMAL); TOTAL CELLS COUNTED 100
--- NOTE | 2018-12-27 09:08 | RAD ---
Date of service: 12/27/2018 HISTORY: Concern for fluid overload COMPARISON: 12/26/2018 FINDINGS: LUNGS: The lungs are well inflated and clear. PLEURA: No right pleural effusion or pneumothorax. There blunting of the left costophrenic angle. CARDIOVASCULAR: The heart is normal in size. There are aortic atherosclerotic calcifications present. OSSEOUS STRUCTURES: Within normal limits for the patient's age. VISUALIZED UPPER ABDOMEN: Normal. OTHER FINDINGS: None. IMPRESSION: No active pulmonary disease. Blunting of the left costophrenic angle may represent pleural thickening or small pleural effusion.
[2018-12-27] MEDS: Saccharomyces Boulardi 250 mg Cap PO SCH ×2 (10:21→17:22)
[2018-12-27] MEDS: Sodium Chloride 0.45% 1,000 ML IV SCH (11:00)
--- NOTE | 2018-12-27 12:34 | CP.PCM.CON ---
History of Present Illness - History of Present Illness History of Present Illness: GI Fellow PGY5 Consult Note This is a 88yM w pmhx of HTN, DM, CAD s/p PCI who presents to ER acute onset of abdominal pain. Pt reports abdominal pain was associated with nausea, vomiting, and diarrhea. Pt reports about 6-8 episodes of non bloody, non billious episodes of vomiting along with multiple episodes of diarrhea. Pain is located in the LLQ, intermittent & crampy. Pt denies any travel, sick contacts or eating spoiled food. He reports colonoscopy 3-4 months ago with but does not have the results. No prior hx of diverticulitis per the patient. ROS:A 12 pt ROS was negative except as above. PMHx: HTN, DM, CAD w/ stents PSHx: Cardiac stents SHx: Denies tobacco, ETOH, illicit drug use, lives alone FHx: Neg for cancer Past Patient History - Past Medical History & Family History Past Medical History?: Yes - Past Social History Smoking Status: Never Smoked - CARDIAC Hx Congestive Heart Failure: Yes Hx Heart Attack: Yes Hx Hypertension: Yes - PULMONARY Hx Respiratory Disorders: No - NEUROLOGICAL Hx Neurological Disorder: No - HEENT Hx HEENT Problems: No - RENAL Hx Chronic Kidney Disease: No - ENDOCRINE/METABOLIC Hx Endocrine Disorders: Yes Hx Diabetes Mellitus Type 2: Yes - HEMATOLOGICAL/ONCOLOGICAL Hx Blood Disorders: No - INTEGUMENTARY Hx Dermatological Problems: No - MUSCULOSKELETAL/RHEUMATOLOGICAL Hx Falls: No - GASTROINTESTINAL Hx Gastrointestinal Disorders: No - GENITOURINARY/GYNECOLOGICAL Hx Genitourinary Disorders: No - PSYCHIATRIC Hx Substance Use: No - SURGICAL HISTORY Hx Surgeries: Yes Hx Cardiac Catheterization: Yes Other/Comment: Coronary Stents - ANESTHESIA Hx Anesthesia: Yes Hx Anesthesia Reactions: No Hx Malignant Hyperthermia: No Meds Allergies/Adverse Reactions: Allergies Allergy/AdvReac Type Severity Reaction Status Date / Time No Known Allergies Allergy Verified 12/26/18 09:21 - Medications Medications: Current Medications Clopidogrel Bisulfate (Plavix) 75 mg PO DAILY [facility] Dextrose (Dextrose 50% Inj) 0 ml IV STAT PRN; Protocol PRN Reason: Hypoglycemia Protocol Dextrose (Glutose 15) 0 gm PO ONCE PRN; Protocol PRN Reason: Hypoglycemia Protocol Famotidine (Pepcid) 20 mg IVP Q24H [facility] Glucagon (Glucagen Diagnostic Kit) 0 mg IM STAT PRN; Protocol PRN Reason: Hypoglycemia Protocol Heparin Sodium (Porcine) (Heparin) 5,000 units SC Q8 [facility] Last Admin: 12/26/18 21:14 Dose: 5,000 units Hydralazine HCl (Apresoline) 50 mg PO BID [facility] Last Admin: 12/27/18 10:21 Dose: 50 mg Dextrose (Dextrose 5% In Water 1000 Ml) 1,000 mls @ 0 mls/hr IV .Q0M PRN; Protocol PRN Reason: Hypoglycemia Protocol Ciprofloxacin (Cipro 400mg/200ml Dsw) 400 mg in 200 mls @ 133 mls/hr IVPB Q12H [facility]; Protocol Last Admin: 12/27/18 01:00 Dose: 133 mls/hr Metronidazole (Flagyl) 500 mg in 100 mls @ 100 mls/hr IVPB Q8H [facility]; Protocol Last Admin: 12/27/18 05:54 Dose: 100 mls/hr Insulin Aspart (Novolog) 0 unit SC ACHS [facility]; Protocol Last Admin: 12/27/18 08:26 Dose: 2 u Lisinopril (Zestril) 5 mg PO DAILY [facility] Last Admin: 12/27/18 10:21 Dose: 5 mg Ondansetron HCl (Zofran Inj) 4 mg IVP Q6H PRN PRN Reason: Nausea/Vomiting Pneumococcal Polyvalent Vaccine (Pneumovax 23 Vaccine) 0.5 ml IM .ONCE ONE Stop: 12/28/18 10:01 Saccharomyces Boulardii (Florastor) 250 mg PO BID [facility] Last Admin: 12/27/18 10:21 Dose: 250 mg Physical Exam - Constitutional Appears: Non-toxic, No Acute Distress - Head Exam Head Exam: ATRAUMATIC, NORMAL INSPECTION, NORMOCEPHALIC - Eye Exam Eye Exam: EOMI, Normal appearance - ENT Exam ENT Exam: Mucous Membranes Moist, Normal Exam - Neck Exam Neck exam: Positive for: Normal Inspection - Respiratory Exam Respiratory Exam: Clear to Auscultation Bilateral, NORMAL BREATHING PATTERN - Cardiovascular Exam Cardiovascular Exam: REGULAR RHYTHM, +S1, +S2 - GI/Abdominal Exam GI & Abdominal Exam: Normal Bowel Sounds, Soft, Tenderness. absent: Distended, Firm, Guarding, Organomegaly - Rectal Exam Rectal Exam: Deferred - Extremities Exam Extremities exam: Positive for: full ROM, normal inspection - Back Exam Back exam: NORMAL INSPECTION - Neurological Exam Neurological exam: Alert, Oriented x3 - Psychiatric Exam Psychiatric exam: Normal Affect, Normal Mood - Skin Skin Exam: Dry, Intact, Normal Color, Warm Results - Vital Signs Recent Vital Signs: Last Vital Signs Temp 98.4 F 12/27/18 07:53 Pulse 64 12/27/18 07:53 Resp 20 12/27/18 07:53 BP 132/58 L 12/27/18 07:53 Pulse Ox 97 12/27/18 07:53 - Labs Result Diagrams: 12/27/18 06:28 12/27/18 06:28 Labs: Laboratory Results - last 24 hr 12/26/18 12/26/18 12/26/18 15:23 21:04 22:42 WBC RBC Hgb Hct MCV MCH MCHC RDW Plt Count MPV Neut % (Auto) Lymph % (Auto) Eagle % (Auto) Eos % (Auto) Baso % (Auto) Neut # (Auto) Lymph # (Auto) Eagle # (Auto) Eos # (Auto) Baso # (Auto) Neutrophils % (Manual) Band Neutrophils % Lymphocytes % (Manual) Monocytes % (Manual) Platelet Estimate RBC Morphology Sodium Potassium Chloride Carbon Dioxide Anion Gap BUN Creatinine Est GFR ( Amer) Est GFR (Non-Af Amer) POC Glucose (mg/dL) 143 H 149 H Random Glucose Hemoglobin A1c Calcium Phosphorus Magnesium Total Bilirubin AST ALT Alkaline Phosphatase Total Protein Albumin Globulin Albumin/Globulin Ratio Triglycerides Cholesterol LDL Cholesterol Direct HDL Cholesterol Blood Type O POSITIVE Antibody Screen Negative 12/27/18 12/27/18 12/27/18 06:28 06:28 06:28 WBC 14.3 H RBC 4.02 L Hgb 12.4 D Hct 36.8 MCV 91.6 MCH 30.9 MCHC 33.7 RDW 13.1 Plt Count 208 MPV 10.2 Neut % (Auto) 80.2 H Lymph % (Auto) 7.8 L Eagle % (Auto) 11.1 H Eos % (Auto) 0.4 Baso % (Auto) 0.5 Neut # (Auto) 11.5 H Lymph # (Auto) 1.1 Eagle # (Auto) 1.6 H Eos # (Auto) 0.1 Baso # (Auto) 0.1 Neutrophils % (Manual) 69 Band Neutrophils % 9 H Lymphocytes % (Manual) 8 L Monocytes % (Manual) 14 H Platelet Estimate Normal RBC Morphology Normal Sodium 137 Potassium 4.2 Chloride 105 Carbon Dioxide 23 Anion Gap 13 BUN 25 H Creatinine 1.3 Est GFR ( Amer) > 60 Est GFR (Non-Af Amer) 52 POC Glucose (mg/dL) Random Glucose 143 H Hemoglobin A1c 7.4 H D Calcium 8.8 Phosphorus 2.2 L Magnesium 2.0 Total Bilirubin 1.0 AST 36 ALT 30 Alkaline Phosphatase 93 Total Protein 6.0 L Albumin 3.2 L D Globulin 2.8 Albumin/Globulin Ratio 1.2 Triglycerides 56 D Cholesterol 155 LDL Cholesterol Direct 108 HDL Cholesterol 40 Blood Type Antibody Screen 12/27/18 12/27/18 07:28 11:33 WBC RBC Hgb Hct MCV MCH MCHC RDW Plt Count MPV Neut % (Auto) Lymph % (Auto) Eagle % (Auto) Eos % (Auto) Baso % (Auto) Neut # (Auto) Lymph # (Auto) Eagle # (Auto) Eos # (Auto) Baso # (Auto) Neutrophils % (Manual) Band Neutrophils % Lymphocytes % (Manual) Monocytes % (Manual) Platelet Estimate RBC Morphology Sodium Potassium Chloride Carbon Dioxide Anion Gap BUN Creatinine Est GFR ( Amer) Est GFR (Non-Af Amer) POC Glucose (mg/dL) 230 H 179 H Random Glucose Hemoglobin A1c Calcium Phosphorus Magnesium Total Bilirubin AST ALT Alkaline Phosphatase Total Protein Albumin Globulin Albumin/Globulin Ratio Triglycerides Cholesterol LDL Cholesterol Direct HDL Cholesterol Blood Type Antibody Screen Assessment & Plan - Assessment and Plan (Free Text) Assessment: 1. Abdominal pain, diarrhea, vomiting-improving 2. Rectosigmoid colitis -Recommend IV abx Cipro/Flagyl for colitis -Pain and diarrhea improving with only 2Bm overnight -Stool studies with Cdiff ordered -Pt will need outpatient colonoscopy after resolution of acute colitis infection -Advance diet as tolerated
--- NOTE | 2018-12-27 12:45 | CARD ---
APPROVED REPORT Date of service: 12/26/2018 EKG Measurement Heart [id number] <Conclusion> Normal sinus rhythm Inferior infarct, age undetermined Abnormal ECG
[2018-12-28] MEDS: Ciprofloxacin 400mg/200ml D5W 400 MG/200 ML BAG IVPB SCH ×2 (00:58→13:46)
[2018-12-28] MEDS: metroNIDAZOLE IV 500 mg/100 ml 500 MG/100 ML BAG IVPB SCH ×2 (04:48→12:21)
[2018-12-28 07:43] LABS: BASO # 0.1 K/uL (0.0-0.2); BASO % 0.5 % (0.0-2.0); EOS # 0.2 K/uL (0.0-0.7); EOS % 1.2 % (0.0-4.0); HEMOGLOBIN 11.7 g/dL (12.0-18.0); LYMPH # 1.3 K/uL (1.0-4.3); LYMPH % 9.4 % (20.0-40.0); MEAN CELL VOLUME 91.3 fL (80.0-94.0); MEAN CORPUSCULAR HEMOGLOBIN 32.1 pg (27.0-31.0); MEAN CORPUSCULAR HGB CONC 35.1 g/dL (33.0-37.0); MEAN PLATELET VOLUME 9.9 fL (7.2-11.7); MONO # 1.5 K/uL (0.0-0.8); MONO % 10.7 % (0.0-10.0); NEUT # 10.8 K/uL (1.8-7.0); NEUT % 78.2 % (50.0-75.0); PLATELET COUNT 198 K/uL (130-400); RBC 3.64 Mil/uL (4.40-5.90); RED CELL DISTRIBUTION WIDTH 13.1 % (11.5-14.5); WHITE BLOOD COUNT 13.8 K/uL (4.8-10.8)
[2018-12-28 08:10] LABS: CALCIUM 8.4 mg/dl (8.6-10.4)
[2018-12-28] MEDS: (Novolog) Insulin Aspart, Recombinant 100 u/ml 10 ml vial SC SCH ×3 (08:30→17:11)
[2018-12-28 09:00] LABS: ANISOCYTOSIS SLIGHT; BANDS 1 % (0-2); EOSINOPHIL 1 % (0-4); HYPOCHROMIC SLIGHT; LYMPHOCYTE 9 % (20-40); MONOCYTE 13 % (0-10); NEUTROPHIL 76 % (50-75); PLATELET ESTIMATE NORMAL (NORMAL); POIKILOCYTOSIS SLIGHT; TOTAL CELLS COUNTED 100
--- NOTE | 2018-12-28 09:23 | CP.PCM.PN ---
Subjective - Date & Time of Evaluation Date of Evaluation: 12/28/18 Time of Evaluation: 09:23 Objective - Vital Signs/Intake and Output Vital Signs (last 24 hours): Temp Pulse Resp BP Pulse Ox 98.8 F 77 20 122/59 L 95 12/28/18 07:55 12/28/18 07:55 12/28/18 07:55 12/28/18 07:55 12/28/18 07:55 Intake and Output: 12/28/18 12/28/18 06:59 18:59 Intake Total 500 Balance 500 - Medications Medications: Current Medications Clopidogrel Bisulfate (Plavix) 75 mg PO DAILY [facility] Last Admin: 12/27/18 12:00 Dose: 75 mg Dextrose (Dextrose 50% Inj) 0 ml IV STAT PRN; Protocol PRN Reason: Hypoglycemia Protocol Dextrose (Glutose 15) 0 gm PO ONCE PRN; Protocol PRN Reason: Hypoglycemia Protocol Famotidine (Pepcid) 20 mg IVP Q24H [facility] Glucagon (Glucagen Diagnostic Kit) 0 mg IM STAT PRN; Protocol PRN Reason: Hypoglycemia Protocol Heparin Sodium (Porcine) (Heparin) 5,000 units SC Q8 [facility] Last Admin: 12/26/18 21:14 Dose: 5,000 units Hydralazine HCl (Apresoline) 50 mg PO BID [facility] Last Admin: 12/27/18 17:23 Dose: 50 mg Dextrose (Dextrose 5% In Water 1000 Ml) 1,000 mls @ 0 mls/hr IV .Q0M PRN; Protocol PRN Reason: Hypoglycemia Protocol Ciprofloxacin (Cipro 400mg/200ml Dsw) 400 mg in 200 mls @ 133 mls/hr IVPB Q12H [facility]; Protocol Last Admin: 12/28/18 00:58 Dose: 133 mls/hr Metronidazole (Flagyl) 500 mg in 100 mls @ 100 mls/hr IVPB Q8H [facility]; Protocol Last Admin: 12/28/18 04:48 Dose: 100 mls/hr Insulin Aspart (Novolog) 0 unit SC ACHS [facility]; Protocol Last Admin: 12/28/18 08:30 Dose: 2 u Lisinopril (Zestril) 5 mg PO DAILY [facility] Last Admin: 12/27/18 10:21 Dose: 5 mg Ondansetron HCl (Zofran Inj) 4 mg IVP Q6H PRN PRN Reason: Nausea/Vomiting Pneumococcal Polyvalent Vaccine (Pneumovax 23 Vaccine) 0.5 ml IM .ONCE ONE Stop: 12/28/18 10:01 Saccharomyces Boulardii (Florastor) 250 mg PO BID [facility] Last Admin: 12/27/18 17:22 Dose: 250 mg - Labs Labs: 12/28/18 07:23 12/28/18 07:23 PT 12.5 SECONDS (9.7-12.2) H 12/26/18 09:41 INR 1.1 12/26/18 09:41 APTT 27.0 SECONDS (21-34) 12/26/18 09:41
[2018-12-28] MEDS ORDERED: Potassium & Sodium Phosphate PO ONE (10:00)
[2018-12-28] MEDS ORDERED: Pneumococcal 23-Valent Vaccine IM ONE (10:00)
--- NOTE | 2018-12-28 10:19 | PN ---
DATE: 12/28/2018 LOCATION: 368, bed A. SUBJECTIVE: This is an 88-year-old male seen initially for GI consultation on 12/27/2018, reexamined again today without significant clinical changes or reported active bleeding with intermittent period of diarrhea with trace mucous bloody exudate but no reported chest pain, palpitation, significant increase of shortness of breath, and no reported chills or fever. The entire chart is reviewed, including the most recent lab and radiology study results, current and the previous medication list, current and the previous medical events. Case discussed with the staff at length. Today's lab showed leukocytosis of 13.8, hemoglobin 11.7, hematocrit 33.3 with normal platelet count. CO2 content of 21 indicative of metabolic acidosis, BUN 23, creatinine normal, glucose 201, calcium 8.4 with low phosphorus of 2.4, albumin 3, total protein 5.8. Stool for occult blood, however, reported to be positive. The patient reported before have mildly elevated serum amylase level 131. The initial report of CAT scan of the abdomen and pelvis is seen, indicative of left-sided colitis; however, the possibility of ischemic colitis clinically was raised. PHYSICAL EXAMINATION: GENERAL: An 88-year-old male. VITAL SIGNS: Afebrile with pulse of 76, respiratory rate 20 to 22, blood pressure of 124/64. HEENT: Pale, dry oral mucous membrane. Nonicteric sclerae. LUNGS: Few scattered crepitation. Decreased air entry at bases. HEART: Positive S1 and S2. ABDOMEN: Soft with mild generalized tenderness, but mainly in the midepigastric and left lower quadrant area. No mass or organomegaly. No rebound tenderness or guarding. Left-sided as well as midepigastric and midabdominal tenderness are positive, but less than before. EXTREMITIES: Without significant clubbing, cyanosis, or edema. NEUROLOGIC: No reported new neurological deficit, sensory or motor. IMPRESSION: 1. Bloody diarrhea. The possibility of diverticulosis, diverticulitis with blood diarrhea was raised versus ischemic colitis. 2. Abnormal CAT scan of the abdomen and pelvis. 3. Known history of but not limited to hypertension, coronary artery disease, congestive heart failure. 4. Poorly controlled diabetes mellitus. 5. Electrolyte imbalance with hypophosphatemia and hypocalcemia. 6. Metabolic acidosis secondary to above. 7. Anemia, most likely secondary to above. To rule out occult gastrointestinal malignancy, upper versus lower gastrointestinal blood loss. SUGGESTIONS: 1. Agree with your plan. 2. Due to the patient's leukocytosis, continue IV antibiotics. 3. Only clear liquid diet. 4. If there is subsequent drop of hemoglobin and hematocrit and more rectal bleeding, then more aggressive GI workup to be considered including upper and lower endoscopy. 5. Cancer markers. 6. Follow up PT and PTT. Further recommendation to follow. Jhonny Moore MD [facility] # [id number]
[2018-12-28] MEDS: Saccharomyces Boulardi 250 mg Cap PO SCH ×2 (10:20→17:11)
[2018-12-28 12:15] LABS: INR 1.3
--- NOTE | 2018-12-28 15:20 | CP.PCM.DIS ---
<Og Yanes - Last Filed: 12/28/18 15:16> Provider - Provider Date of Admission: 12/26/18 13:27 Attending physician: Duane Justice DO Primary care physician: Maddy PCP Consults: 12/26/18 19:11 Inpatient COMMUNITY AIDE Core Measures Referral Routine Comment: Physician Instructions: Reason For Exam: History of CHF 12/27/18 07:03 Gastroenterology Consult Routine Comment: Consulting Provider: Jhonny Jones Consulting Physician: Jhonny Jones Reason for Consult: Colitis Time Spent in preparation of Discharge (in minutes): 45 Diagnosis - Discharge Diagnosis (1) Colitis Status: Acute Priority: Medium (2) Bandemia Status: Acute Priority: Medium (3) Leukocytosis Status: Acute Priority: Medium Hospital Course - Lab Results Lab Results: Micro Results 12/26/18 09:15 Blood Blood Culture - Preliminary NO GROWTH AFTER 48 HOURS 12/26/18 09:45 Blood Blood Culture - Preliminary NO GROWTH AFTER 48 HOURS 12/27/18 06:00 Rectum Ova and Parasite Concentrate Exam - Final 12/26/18 10:25 Urine Random Urine Culture - Final No Growth (<1,000 CFU/ML) Most Recent Lab Values WBC 13.8 K/uL (4.8-10.8) H 12/28/18 07:23 RBC 3.64 Mil/uL (4.40-5.90) L 12/28/18 07:23 Hgb 11.7 g/dL (12.0-18.0) L 12/28/18 07:23 Hct 33.3 % (35.0-51.0) L 12/28/18 07:23 MCV 91.3 fL (80.0-94.0) 12/28/18 07:23 MCH 32.1 pg (27.0-31.0) H 12/28/18 07:23 MCHC 35.1 g/dL (33.0-37.0) 12/28/18 07:23 RDW 13.1 % (11.5-14.5) 12/28/18 07:23 Plt Count 198 K/uL (130-400) 12/28/18 07:23 MPV 9.9 fL (7.2-11.7) 12/28/18 07:23 Neut % (Auto) 78.2 % (50.0-75.0) H 12/28/18 07:23 Lymph % (Auto) 9.4 % (20.0-40.0) L 12/28/18 07:23 Banks % (Auto) 10.7 % (0.0-10.0) H 12/28/18 07:23 Eos % (Auto) 1.2 % (0.0-4.0) 12/28/18 07:23 Baso % (Auto) 0.5 % (0.0-2.0) 12/28/18 07:23 Neut # (Auto) 10.8 K/uL (1.8-7.0) H 12/28/18 07:23 Lymph # (Auto) 1.3 K/uL (1.0-4.3) 12/28/18 07:23 Banks # (Auto) 1.5 K/uL (0.0-0.8) H 12/28/18 07:23 Eos # (Auto) 0.2 K/uL (0.0-0.7) 12/28/18 07:23 Baso # (Auto) 0.1 K/uL (0.0-0.2) 12/28/18 07:23 Neutrophils % (Manual) 76 % (50-75) H 12/28/18 07:23 Band Neutrophils % 1 % (0-2) 12/28/18 07:23 Lymphocytes % (Manual) 9 % (20-40) L 12/28/18 07:23 Monocytes % (Manual) 13 % (0-10) H 12/28/18 07:23 Eosinophils % (Manual) 1 % (0-4) 12/28/18 07:23 Platelet Estimate Normal (NORMAL) 12/28/18 07:23 RBC Morphology Normal 12/27/18 06:28 Hypochromasia (manual) Slight 12/28/18 07:23 Poikilocytosis (manual Slight 12/28/18 07:23 Anisocytosis (manual) Slight 12/28/18 07:23 PT 14.0 SECONDS (9.7-12.2) H 12/28/18 11:51 INR 1.3 12/28/18 11:51 APTT 29.0 SECONDS (21-34) 12/28/18 11:51 pO2 20 mm/Hg (30-55) L 12/26/18 09:53 VBG pH 7.32 (7.32-7.43) 12/26/18 09:53 VBG pCO2 54 mmHg (40-60) 12/26/18 09:53 VBG HCO3 23.6 mmol/L 12/26/18 09:53 VBG Total CO2 29.5 mmol/L (22-28) H 12/26/18 09:53 VBG O2 Sat (Calc) 37.2 % (40-65) L 12/26/18 09:53 VBG Base Excess 0.7 mmol/L (0.0-2.0) 12/26/18 09:53 VBG Potassium 5.3 mmol/L (3.6-5.2) H 12/26/18 09:53 Sodium 139.0 mmol/l (132-148) 12/26/18 09:53 Chloride 107.0 mmol/L (98-107) 12/26/18 09:53 Glucose 151 mg/dl (75-110) H 12/26/18 09:53 Lactate 1.7 mmol/L (0.7-2.1) 12/26/18 09:53 Sodium 136 mmol/L (132-148) 12/28/18 07:23 Potassium 4.0 mmol/L (3.6-5.2) 12/28/18 07:23 Chloride 106 mmol/L (98-107) 12/28/18 07:23 Carbon Dioxide 21 mmol/L (22-30) L 12/28/18 07:23 Anion Gap 13 (10-20) 12/28/18 07:23 BUN 23 mg/dL (9-20) H 12/28/18 07:23 Creatinine 1.4 mg/dL (0.8-1.5) 12/28/18 07:23 Est GFR ( Amer) 58 12/28/18 07:23 Est GFR (Non-Af Amer) 48 12/28/18 07:23 POC Glucose (mg/dL) 198 mg/dL (65-110) H 12/28/18 11:16 Random Glucose 191 mg/dL (75-110) H D 12/28/18 07:23 Hemoglobin A1c 7.4 % (4.2-6.5) H D 12/27/18 06:28 Calcium 8.4 mg/dl (8.6-10.4) L 12/28/18 07:23 Phosphorus 2.4 mg/dL (2.5-4.5) L 12/28/18 07:23 Magnesium 2.0 mg/dL (1.6-2.3) 12/28/18 07:23 Total Bilirubin 0.7 mg/dL (0.2-1.3) 12/28/18 07:23 AST 28 U/L (17-59) 12/28/18 07:23 ALT 27 U/L (21-72) 12/28/18 07:23 Alkaline Phosphatase 87 U/L (38-126) 12/28/18 07:23 Troponin I < 0.0120 ng/mL (0.00-0.120) 12/26/18 09:41 NT-Pro-B Natriuret Pep 246 pg/mL (0-900) 12/26/18 09:41 Total Protein 5.8 g/dL (6.3-8.3) L 12/28/18 07:23 Albumin 3.0 g/dL (3.5-5.0) L 12/28/18 07:23 Globulin 2.9 gm/dL (2.2-3.9) 12/28/18 07:23 Albumin/Globulin Ratio 1.0 (1.0-2.1) 12/28/18 07:23 Triglycerides 56 mg/dL (0-149) D 12/27/18 06:28 Cholesterol 155 mg/dL (0-199) 12/27/18 06:28 LDL Cholesterol Direct 108 mg/dL (0-129) 12/27/18 06:28 HDL Cholesterol 40 mg/dL (30-70) 12/27/18 06:28 Amylase 131 U/L (30-110) H 12/26/18 09:41 Lipase 97 U/L (23-300) 12/26/18 09:41 Carcinoembryonic Ag 2.6 ng/mL (0-3.0) 12/28/18 11:51 CA 19-9 Antigen < 1.4 U/mL (0-37) 12/28/18 11:51 Venous Blood Potassium 5.3 mmol/L (3.6-5.2) H 12/26/18 09:53 Urine Color Yellow (YELLOW) 12/26/18 10:16 Urine Clarity Hazy (Clear) 12/26/18 10:16 Urine pH 5.0 (5.0-8.0) 12/26/18 10:16 Ur Specific [place] 1.019 (1.003-1.030) 12/26/18 10:16 Urine Protein 2+ mg/dL (NEGATIVE) H 12/26/18 10:16 Urine Glucose (UA) 2+ mg/dL (Normal) H 12/26/18 10:16 Urine Ketones Negative mg/dL (NEGATIVE) 12/26/18 10:16 Urine Blood 1+ (NEGATIVE) H 12/26/18 10:16 Urine Nitrate Negative (NEGATIVE) 12/26/18 10:16 Urine Bilirubin Negative (NEGATIVE) 12/26/18 10:16 Urine Urobilinogen Normal mg/dL (0.2-1.0) 12/26/18 10:16 Ur Leukocyte Esterase Neg Mariaa/uL (Negative) 12/26/18 10:16 Urine WBC (Auto) 1 /hpf (0-5) 12/26/18 10:16 Urine RBC (Auto) 7 /hpf (0-3) H 12/26/18 10:16 Ur Squamous Epith Cells < 1 /hpf (0-5) 12/26/18 10:16 Hyaline Casts 3-5 /lpf (0-2) H 12/26/18 10:16 Stool Occult Blood Positive (NEGATIVE) H 12/27/18 20:29 Stool Leukocytes, Qual Negative (NEGATIVE) 12/27/18 06:40 C. difficile Ag & Toxin Negative (NEGATIVE) 12/27/18 20:29 Blood Type O POSITIVE 12/26/18 22:42 Antibody Screen Negative 12/26/18 22:42 - Hospital Course Hospital Course: PGY1 Discharge Summary and Hospital Course for Dr. Justice On Admission: 88M w/ PMhx of HTN, DM, CAD w/ stents presents to ER for severe abdominal pain. Pt reports abdominal pain woke him up at 2AM and had nausea, vomitting, and diarrhea associated with pain. Pt reports about 6-8 episodes of non bloody, non billious episodes of vomitting along with 6 episodes of diarrhea. Pain is reported in the LLQ & RLQ area, intermittent & crampy in nature that is much improved at time of examination. Pt reports also subjective fevers. Patient lives at home and denies hx of sick contacts and recevent travel history. Please see chart for details. Patient underwent CT abdomen and pelvis without contrast which revealed extensive colonic wall thickening most severely involving the left colon and rectosigmoid colon; nodular hepatic contour may be seen in the setting of cirrhosis. Borderline enlargement of the prostate gland with coarse calcifications. Patient was sebsequently admitted for abdominal pain, nausea, vomiting secondary to rectosigmoid colitis. CBC revealed leukocytosis with left shift and bands. Antibiotics were started 12/26 Ciprofloxacin 400 mg IVPB Q12H and Flaggyl 500 mg IVPB Q8H. Blood cultures were obtained and were negative x48 hours. Stool leukocytes was obtained and was negative. Diet was advanced as tolerated. GI was consulted (Dr. Jones); recommended that the Patient follow-up as an out-patient for colonoscopy, as the Patient denies history of previous colonoscopy. On day of discharge, patient was hemodynamically stable and clinically optimized for discharge to home. Patient denied abdominal pain, and/or nausea/vomiting. Patient's leukocytosis improved significantly. Patient was afebrile > 48 hours. Patient received discharge instructions both verbally and in writing to the level of the Patient's comprehension. Patient both understands and agrees to all instructions. Please see chart for details. Patient seen and case discussed with Dr. Reshma Yanes PGY1 Discharge Exam - Head Exam Head Exam: ATRAUMATIC, NORMAL INSPECTION, NORMOCEPHALIC - Eye Exam Eye Exam: EOMI, Normal appearance, PERRL Pupil Exam: NORMAL ACCOMODATION - ENT Exam ENT Exam: Mucous Membranes Moist - Neck Exam Neck exam: Normal Inspection - Respiratory Exam Respiratory Exam: Clear to PA & Lateral, NORMAL BREATHING PATTERN, UNREMARKABLE - Cardiovascular Exam Cardiovascular Exam: REGULAR RHYTHM, +S1, +S2 - GI/Abdominal Exam GI & Abdominal Exam: Normal Bowel Sounds, Soft, Unremarkable. absent: Tenderness - Extremities Exam Extremities exam: full ROM, normal capillary refill, pedal pulses present - Back Exam Back exam: absent: CVA tenderness (L), CVA tenderness (R) - Neurological Exam Neurological exam: Alert, Normal Gait, Oriented x3 - Psychiatric Exam Psychiatric exam: Normal Affect, Normal Mood - Skin Skin Exam: Dry, Intact, Normal Color, Warm Discharge Plan - Discharge Medications Prescriptions: Ciprofloxacin [Cipro] 500 mg PO BID #20 tab metroNIDAZOLE [Flagyl] 500 mg PO Q8 10 Days tab - Follow Up Plan Condition: STABLE Disposition: HOME/ ROUTINE Instructions: Ciprofloxacin (Systemic), Metronidazole (Systemic), Colitis (DC), Leukocytosis (DC) Additional Instructions: Please follow-up with the [facility] within 3-5 days of being discharged form the hospital Please follow-up with Dr. Jones (Gastroenterology), as it was recommended that you get a colonoscopy as an out-patient Please take your home medications as prescribed Please take the following NEW medications that were prescribed to you during this hospitalization: 1. Cipro 500mg. Take 1 tab by mouth twice daily for 10 days 2. Flagyl 500mg. Take 1 tab by mouth 3 times daily for 10 days If your symptoms return, please go to your nearest emergency department immediately Por favor, gi un seguimiento con la clnica de sreedhar del vecindario [facility] dentro de los 3 a 5 snow de ser dado de evens del hospital. Por favor gi un seguimiento con el Dr. Jones (Gastroenterologa), ya que se recomend que se realice gonzalez colonoscopia dawn paciente ambulatorio. Por favor, tome delfina medicamentos caseros segn lo prescrito [place] los siguientes NUEVOS medicamentos que se le recetaron dipak esta hospit alizacin: 1. Cipro 500 mg. [place] 1 ficha por va oral dos veces al da dipak 10 snow. 2. Flagyl 500 mg. [place] 1 pestaa por va oral 3 veces al da dipak 10 snow Si delfina sntomas regresan, dirjase de inmediato al servicio de urgencias ms tyron. Referrals: Jhonny Jones [Staff Provider] - <Duane Justice - Last Filed: 12/28/18 17:57> Provider - Provider Date of Admission: 12/26/18 13:27 Attending physician: Duane Justice DO Consults: 12/26/18 19:11 Inpatient COMMUNITY AIDE Core Measures Referral Routine Comment: Physician Instructions: Reason For Exam: History of CHF 12/27/18 07:03 Gastroenterology Consult Routine Comment: Consulting Provider: Jhonny Jones Consulting Physician: Jhonny Jones Reason for Consult: Colitis Hospital Course - Lab Results Lab Results: Micro Results 12/26/18 09:15 Blood Blood Culture - Preliminary NO GROWTH AFTER 48 HOURS 12/26/18 09:45 Blood Blood Culture - Preliminary NO GROWTH AFTER 48 HOURS 12/27/18 06:00 Rectum Ova and Parasite Concentrate Exam - Final 12/26/18 10:25 Urine Random Urine Culture - Final No Growth (<1,000 CFU/ML) Most Recent Lab Values WBC 13.8 K/uL (4.8-10.8) H 12/28/18 07:23 RBC 3.64 Mil/uL (4.40-5.90) L 12/28/18 07:23 Hgb 11.7 g/dL (12.0-18.0) L 12/28/18 07:23 Hct 33.3 % (35.0-51.0) L 12/28/18 07:23 MCV 91.3 fL (80.0-94.0) 12/28/18 07:23 MCH 32.1 pg (27.0-31.0) H 12/28/18 07:23 MCHC 35.1 g/dL (33.0-37.0) 12/28/18 07:23 RDW 13.1 % (11.5-14.5) 12/28/18 07:23 Plt Count 198 K/uL (130-400) 12/28/18 07:23 MPV 9.9 fL (7.2-11.7) 12/28/18 07:23 Neut % (Auto) 78.2 % (50.0-75.0) H 12/28/18 07:23 Lymph % (Auto) 9.4 % (20.0-40.0) L 12/28/18 07:23 Banks % (Auto) 10.7 % (0.0-10.0) H 12/28/18 07:23 Eos % (Auto) 1.2 % (0.0-4.0) 12/28/18 07:23 Baso % (Auto) 0.5 % (0.0-2.0) 12/28/18 07:23 Neut # (Auto) 10.8 K/uL (1.8-7.0) H 12/28/18 07:23 Lymph # (Auto) 1.3 K/uL (1.0-4.3) 12/28/18 07:23 Banks # (Auto) 1.5 K/uL (0.0-0.8) H 12/28/18 07:23 Eos # (Auto) 0.2 K/uL (0.0-0.7) 12/28/18 07:23 Baso # (Auto) 0.1 K/uL (0.0-0.2) 12/28/18 07:23 Neutrophils % (Manual) 76 % (50-75) H 12/28/18 07:23 Band Neutrophils % 1 % (0-2) 12/28/18 07:23 Lymphocytes % (Manual) 9 % (20-40) L 12/28/18 07:23 Monocytes % (Manual) 13 % (0-10) H 12/28/18 07:23 Eosinophils % (Manual) 1 % (0-4) 12/28/18 07:23 Platelet Estimate Normal (NORMAL) 12/28/18 07:23 RBC Morphology Normal 12/27/18 06:28 Hypochromasia (manual) Slight 12/28/18 07:23 Poikilocytosis (manual Slight 12/28/18 07:23 Anisocytosis (manual) Slight 12/28/18 07:23 PT 14.0 SECONDS (9.7-12.2) H 12/28/18 11:51 INR 1.3 12/28/18 11:51 APTT 29.0 SECONDS (21-34) 12/28/18 11:51 pO2 20 mm/Hg (30-55) L 12/26/18 09:53 VBG pH 7.32 (7.32-7.43) 12/26/18 09:53 VBG pCO2 54 mmHg (40-60) 12/26/18 09:53 VBG HCO3 23.6 mmol/L 12/26/18 09:53 VBG Total CO2 29.5 mmol/L (22-28) H 12/26/18 09:53 VBG O2 Sat (Calc) 37.2 % (40-65) L 12/26/18 09:53 VBG Base Excess 0.7 mmol/L (0.0-2.0) 12/26/18 09:53 VBG Potassium 5.3 mmol/L (3.6-5.2) H 12/26/18 09:53 Sodium 139.0 mmol/l (132-148) 12/26/18 09:53 Chloride 107.0 mmol/L (98-107) 12/26/18 09:53 Glucose 151 mg/dl (75-110) H 12/26/18 09:53 Lactate 1.7 mmol/L (0.7-2.1) 12/26/18 09:53 Sodium 136 mmol/L (132-148) 12/28/18 07:23 Potassium 4.0 mmol/L (3.6-5.2) 12/28/18 07:23 Chloride 106 mmol/L (98-107) 12/28/18 07:23 Carbon Dioxide 21 mmol/L (22-30) L 12/28/18 07:23 Anion Gap 13 (10-20) 12/28/18 07:23 BUN 23 mg/dL (9-20) H 12/28/18 07:23 Creatinine 1.4 mg/dL (0.8-1.5) 12/28/18 07:23 Est GFR ( Amer) 58 12/28/18 07:23 Est GFR (Non-Af Amer) 48 12/28/18 07:23 POC Glucose (mg/dL) 225 mg/dL (65-110) H 12/28/18 16:34 Random Glucose 191 mg/dL (75-110) H D 12/28/18 07:23 Hemoglobin A1c 7.4 % (4.2-6.5) H D 12/27/18 06:28 Calcium 8.4 mg/dl (8.6-10.4) L 12/28/18 07:23 Phosphorus 2.4 mg/dL (2.5-4.5) L 12/28/18 07:23 Magnesium 2.0 mg/dL (1.6-2.3) 12/28/18 07:23 Total Bilirubin 0.7 mg/dL (0.2-1.3) 12/28/18 07:23 AST 28 U/L (17-59) 12/28/18 07:23 ALT 27 U/L (21-72) 12/28/18 07:23 Alkaline Phosphatase 87 U/L (38-126) 12/28/18 07:23 Troponin I < 0.0120 ng/mL (0.00-0.120) 12/26/18 09:41 NT-Pro-B Natriuret Pep 246 pg/mL (0-900) 12/26/18 09:41 Total Protein 5.8 g/dL (6.3-8.3) L 12/28/18 07:23 Albumin 3.0 g/dL (3.5-5.0) L 12/28/18 07:23 Globulin 2.9 gm/dL (2.2-3.9) 12/28/18 07:23 Albumin/Globulin Ratio 1.0 (1.0-2.1) 12/28/18 07:23 Triglycerides 56 mg/dL (0-149) D 12/27/18 06:28 Cholesterol 155 mg/dL (0-199) 12/27/18 06:28 LDL Cholesterol Direct 108 mg/dL (0-129) 12/27/18 06:28 HDL Cholesterol 40 mg/dL (30-70) 12/27/18 06:28 Amylase 131 U/L (30-110) H 12/26/18 09:41 Lipase 97 U/L (23-300) 12/26/18 09:41 Carcinoembryonic Ag 2.6 ng/mL (0-3.0) 12/28/18 11:51 CA 19-9 Antigen < 1.4 U/mL (0-37) 12/28/18 11:51 Venous Blood Potassium 5.3 mmol/L (3.6-5.2) H 12/26/18 09:53 Urine Color Yellow (YELLOW) 12/26/18 10:16 Urine Clarity Hazy (Clear) 12/26/18 10:16 Urine pH 5.0 (5.0-8.0) 12/26/18 10:16 Ur Specific [place] 1.019 (1.003-1.030) 12/26/18 10:16 Urine Protein 2+ mg/dL (NEGATIVE) H 12/26/18 10:16 Urine Glucose (UA) 2+ mg/dL (Normal) H 12/26/18 10:16 Urine Ketones Negative mg/dL (NEGATIVE) 12/26/18 10:16 Urine Blood 1+ (NEGATIVE) H 12/26/18 10:16 Urine Nitrate Negative (NEGATIVE) 12/26/18 10:16 Urine Bilirubin Negative (NEGATIVE) 12/26/18 10:16 Urine Urobilinogen Normal mg/dL (0.2-1.0) 12/26/18 10:16 Ur Leukocyte Esterase Neg Mariaa/uL (Negative) 12/26/18 10:16 Urine WBC (Auto) 1 /hpf (0-5) 12/26/18 10:16 Urine RBC (Auto) 7 /hpf (0-3) H 12/26/18 10:16 Ur Squamous Epith Cells < 1 /hpf (0-5) 12/26/18 10:16 Hyaline Casts 3-5 /lpf (0-2) H 12/26/18 10:16 Stool Occult Blood Positive (NEGATIVE) H 12/27/18 20:29 Stool Leukocytes, Qual Negative (NEGATIVE) 12/27/18 06:40 C. difficile Ag & Toxin Negative (NEGATIVE) 12/27/18 20:29 Blood Type O POSITIVE 12/26/18 22:42 Antibody Screen Negative 12/26/18 22:42 Attending/Attestation - Attestation I have personally seen and examined this patient.: Yes I have fully participated in the care of the patient.: Yes I have reviewed all pertinent clinical information, including history, physical exam and plan: Yes Notes (Text): 12/28/18 17:51 Medical attending: Patient was seen and examined by me. The patient tolerated a regular diet He was no longer reporting abdominal pain, and denied fevers as well. He also denied having anymore diarrhea as well. The patient's WBC has been decreasing each day. He will need to continue with PO abx Cipro and Flagyl PO. He also understands he needs to follow up with GI for eventual colonscopy Duane Justice
[2018-12-28 16:01] VITALS: BP 142/51; PULSE 67; TEMP 97.9; O2SAT 99
== END 2018-12-28 17:55 | disposition home or self-care (01) | DRG 386 ==
LOC: C.ER 08:54 → C.9E 13:27 → C.3T 17:56
PROVIDERS: ADMIT Hospitalist; ATTEND Hospitalist
DX: K51.50 Left sided colitis without complications (principal); E87.2 Acidosis; D72.825 Bandemia; E83.51 Hypocalcemia; I11.0 Hypertensive heart disease with heart failure; I25.10 Atherosclerotic heart disease of native coronary artery without angina pectoris; I50.9 Heart failure, unspecified; N40.0 Benign prostatic hyperplasia without lower urinary tract symptoms; Z95.5 Presence of coronary angioplasty implant and graft; E11.65 Type 2 diabetes mellitus with hyperglycemia; D64.9 Anemia, unspecified; E83.39 Other disorders of phosphorus metabolism; I25.2 Old myocardial infarction